=== PATIENT | female | born 1950 | race Caucasian/White ===

== ENCOUNTER 2022-03-29 11:15 | Outpatient (CLI) | payer MEDICARE, OTHER, SELFPAY ==
--- NOTE | 2022-03-29 11:30 | CRLHL7_ITS ---
For Patients: As a result of the Century Cures Act, medical imaging exams and procedure reports are released immediately into your electronic medical record. You may view this report before your referring provider. If you have questions, please contact your health care provider. BILATERAL MAMMOGRAM WITH COMPUTER-AIDED DETECTION AND TOMOSYNTHESIS TECHNIQUE: CC and MLO views were obtained. These mammographic images have been obtained using full-field digital technique. These mammographic images were interpreted with the benefit of computer-aided detection. Breast Tomosynthesis was used in this interpretation. COMPARISON FILM: 08/18/2020, 03/25/2019, 12/08/2017. FINDINGS: There are scattered areas of fibroglandular density IMPRESSION: There is no radiographic evidence for malignancy. ASSESSMENT: BI-RADS Category 1: Negative RECOMMENDATION: Routine screening mammogram in 1 year. A lay language report of this examination will be provided to the patient. Too Camacho M.D. Diagnostic Radiologist [email or web address] ALFREDO/Dictated by: Too Camacho MD @ 03/29/2022 12:41:00 PM (Electronically Signed)
--- OUTSIDE RECORDS SUMMARY | 2022-04-26 08:31 | XMS_ITS ---
:1950 Author Care Team Providers Name Role Phone HAWA PORTILLO MD Primary Care Provider [phone] [facility] Primary Care Provider [phone] Allergies Code Code System Name Reaction Severity Status Onset 2670 RxNorm Codeine ? ? Active ? 0833934 RxNorm Latex ? ? Active ? Notes: None reaction to unsure, unknow n reaction to latex sensitive Medications Name Status Start Date Stop Date ? ? amlodipine 2.5 mg-atorvastatin 10 mg tablet Completed ? 03/14/2022 5mg/10mg 1/day amlodipine 5 mg tablet Completed ? TAKE 1 TABLET BY MOUTH EVERY DAY amlodipine 5 mg-atorvastatin 10 mg tablet Active ? Not available Take 1 tablet every day by oral route. atorvastatin 10 mg tablet Active ? Not av ailable TAKE 1 TABLET BY MOUTH AT BEDTIME cetirizine 10 mg tablet Active ? Not avai lable Take 1 tablet every day by oral route. ketorolac 0.5 % eye drops Active ? Not av ailable 1 DROP TO OPERATIVE EYE 4 TIMES A DAY STARTING AFTER SURGERY lisinopril Completed ? 03/14/2022 40mg 1/day lisinopril 40 mg tablet Active ? Not avai lable TAKE 1 TABLET BY MOUTH EVERY DAY metronidazole Completed ? 03/14/2022 45g of 0.75% 2/day metronidazole 0.75 % topical cream Active ? Not available APPLY TO AFFECTED AREA TWICE A DAY ofloxacin 0.3 % eye drops Active ? Not av ailable 1 DROP TO OPERATIVE EYE 4 TIMES A DAY STARTING MONDAY BEFORE TAYLOR RGERY One-A-Day Womens Formula Active ? Not lois ilable prednisolone acetate 1 % eye drops,suspension Active ? Not available 1 DROP TO OPERATIVE EYE 4 TIMES A DAY STARTING AFTER SURGERY prednisone 10 mg tablet Completed ? 03/14/20 22 TAKE 30MG DAILY FOR 3DAYS, THEN 20MG DA ERYN FOR 3DAYS, THEN 10MG DAILY. TAKE WITH FOOD sodium fluoride 0.2 % dental solution Active ? Not available USE 10 ML DAILY PREFERABLY AT BEDTIME A FTER THOROUGHLY BRUSHING TEETH, SWISH FOR 1 MINUTE, THEN SPIT vitamin E Active ? Not available 180mg 1/day Problems Name Status Onset Date Source ? Dyslipidemia Active 03/14/2022 ? Cataract Active 03/14/2022 ? Essential Hypertension Active 03/14/2022 ? Rosacea Active 03/14/2022 ? Osteoarthritis Active 03/14/2022 ? Procedures Date Name Performed by ? 02/05/2018 Diagnostic Colonoscopy Information not a vailable Notes: Colonoscopy ? Cataract Surgery Information not avai lable ? Laparoscopy Remove Adnexa Information no t available Notes: Tubal Ligation ? Partial Hysterectomy Information not lois ilable Notes: Hysterectomy (Partial) 03/14/2022 CT, Urogram [facility] [address] [place], [place] [address] (Work Place) Results Lab Results Date Name Specimen Result Interpretation Description Value Range Status Address ? 03/14/2022 Urinalysis, [facility] ? Color-status yellow yellow F inal [place] Dipstick [facility]: [address] ? ? [facility] ? Clarity-stat clear clear Final Min [facility]: [address] ? ? [facility] ? Glucose-stat negative negative Final [place] us mg/dL mg/dL [facility]: [address] ? ? [facility] ? Bilirubin-ur negative negative Final [facility]: [address] ? ? [facility] ? Ketones-stat negative negative Final [place] mg/dL mg/dL [facility]: [address] [address], [place] ? ? U[facility] ? SG-status 1.010 1.00-1.03 Final Min [facility]: [address] [address], [place] ? ? U[facility] ? pH-status 6.0 5.00-8.00 Final Min [facility]: [address] [address], [place] ? ? U[facility] ? Protein-stat negative negative Final [facility] mg/dL mg/dL [facility]: [address] [address], [place] ? ? U[facility] ? Urobilinogen 0.2 0.2 Final [place] -status E.U./dL E.U./dL Urology - E.U./dL E.U./dL [facility]: [address] [place] [address] ? ? U[facility] ? Nitrites-sta negative negative Final [facility]: [address] ? ? [facility] ABNORMAL Blood-urine trace-lindsay negative Yeimy l [facility]: [address] ? ? [facility] ? Leuko-status negative negative Final [place] [facility]: [address] ? ? [facility] ? Specimen voided ? Final [place] [facility]: [address] [place] [address] ? ? URC ? Performed by lucho Landeros ? Final [place] [facility]: [address] [place] [address] ? ? URC ? Total Urine 30 /mL ? Final [place] Volume (mL) [facility] - [facility]: [address] [place] [address] 03/14/2022 Urinalysis, [facility] ? Color yellow yellow Final [place] Complete [facility]: [address] ? ? U[facility] ? Appearance clear clear Final [place] [facility]: [address] [place] [address] ? ? URC ? Glucose negative negative Final [place] [facility] mg/dL mg/dL [facility]: [address] [place] [address] ? ? URC ? Bilirubin negative negative Final [place] [facility]: [address] ? ? U[facility] ? Ketones negative negative Final [place] [facility] mg/dL mg/dL [facility]: [address] [place] [address] ? ? URC ? Sp. [place] 1.020 1.010-1.0 Final [place] [facility] 25 [facility]: [address] [place] [address] ? ? URC ? pH -[facility] 5.5 5.0-8.[address] [place] [facility]: [address] [facility] [address], [place] ? ? U[facility] ? Protein negative negative Final [place] [facility] mg/dL mg/dL [facility]: 60[address] [facility] [address], [place] ? ? URC ? Urobilinogen 0.2 normal Final [place] [facility]: [address] [facility] [address], [place] ? ? URC ? Nitrites negative negative Final [place] [facility]: [address] [facility] [address], [place] ? ? URC ? Blood negative negative Final [place] [facility]: [address] [facility] [address], [place] ? ? U[facility] ? Leukocytes negative negative Final [place] [facility]: 60[address] [facility] [address], [place] ? ? URC ? Total Urine 30 /mL ? Final [place] Volume (mL) [facility] - [facility]: 60[address] [facility] 200, [place] ? ? URC ? U-WBC 0 - 2 0 - 2 Final [place] [hpf] [hpf] [facility]: 60[address] [facility] [address], [place] ? ? URC ? U-RBC 0 - 2 0 - 2 Final [place] [hpf] [hpf] [facility]: 60[address] [facility] [address], [place] ? ? URC ? Bacteria negative negative Final [place] [hpf] [hpf] [facility]: 60[address] [facility] [address], [place] ? ? URC ? Squamous Epi negative negative, Final [place] [facility] - /lpf [facility]: 60[address] [facility] [address], [place] 02/07/2022 Urinalysis, ? No ? ? ? Dipstick observation recorded. Past Encounters 03/14/2022 Blood in Urine; Family History of Malign ant Neoplasm of Urinary Bladder; Ex-smoker Florentin Alicea MD: [address], [address], [place] [address], Ph. Social History Tobacco Smoking Status Former Smoker Vaccine List Vaccine Type COVID-19 (SARS-COV-2) vaccine, unspecifi ed 01/26/2022 influenza, unspecified formulation 06/27/2021 pneumococcal, unspecified formulation 05/22/2013 Plan of Care Reminders Provider Appointments None recorded. ? ? Lab None recorded. ? ? Referral None recorded. ? ? Procedures None recorded. ? ? Surgeries None recorded. ? ? Imaging None recorded. ? ? Vitals Height Weight BMI 5 ft 6 in 168 lbs 27.1 kg/m2
--- OUTSIDE RECORDS SUMMARY | 2022-04-26 08:31 | XMS_ITS | Encounter Summary ---
:1950 Author Care Team Providers Name Role Phone Derek Christian MD Primary Care Provider [phone] [facility] Primary Care Provider [phone] Reason for Visit None recorded. Assessment and Plan 1. Blood in urine gross hematuria with clots at least onc e Right side pain, blood clots in urine UA 3+ blood, neg nit, neg le 25-50 RBC no prior kidney stones fam history of bladder cancer- sister prior smoker cystoscopy 03/14/22- shows area of suspic ious erythema and possible small tumor Plan: CT urogram (high risk gross hematuria, r equires IV contrast) cytology today OR for bladder biopsy (okay for ASC) ? urinalysis, dipstick ? cystoscopy with bladder biopsy (SURG) ? CT, urogram - please call pt to sched ule ? cytology, urine ? urinalysis, complete 2. Family history of malignant neoplasm of urinary bladder 3. Ex-smoker Discussion Note: None recorded.Patient educational handouts: No information available. Plan of Care Reminders Provider Appointments Lab 30 Voiding 04/08/2022 [facility] Trial/fill&pull 10:00AM ? Family Tumor Conference 30 04/11/2022 Florentin Alicea MD 3:30PM Lab Urinalysis, Dipstick 03/14/2022 [place] [facility] ? Cytology, Urine 03/14/2022 [place] [facility] [place] [facility] ? Urinalysis, Complete 03/14/2022 [place] [facility] [place] Referral None recorded. ? ? Procedures None recorded. ? ? Surgeries Cystoscopy with Bladder 03/14/2022 ? Biopsy (SURG) Imaging CT, Urogram 03/14/2022 [facility] dilia Medications Name Start Date ? ? amlodipine 5 mg-atorvastatin 10 mg tablet ? Take 1 tablet every day by oral route. atorvastatin 10 mg tablet ? TAKE 1 TABLET BY MOUTH AT BEDTIME cetirizine 10 mg tablet ? Take 1 tablet every day by oral route. ketorolac 0.5 % eye drops ? 1 DROP TO OPERATIVE EYE 4 TIMES A DAY STARTING AFTER SURGERY lisinopril 40 mg tablet ? TAKE 1 TABLET BY MOUTH EVERY DAY metronidazole 0.75 % topical cream ? APPLY TO AFFECTED AREA TWICE A DAY ofloxacin 0.3 % eye drops ? 1 DROP TO OPERATIVE EYE 4 TIMES A DAY STARTING MONDAY BEFORE SURGERY One-A-Day Womens Formula ? prednisolone acetate 1 % eye drops,suspension ? 1 DROP TO OPERATIVE EYE 4 TIMES A DAY STARTING AFTER SURGERY sodium fluoride 0.2 % dental solution ? USE 10 ML DAILY PREFERABLY AT BEDTIME A FTER THOROUGHLY BRUSHING TEETH, SWISH FOR 1 MINUTE, THEN SPIT vitamin E ? 180mg 1/day Medications Administered None recorded. Vitals Height Weight BMI 5 ft 6 in 168 lbs 27.1 kg/m2 Results Lab Results Date Name Specimen Result Interpretation Description Value Range Status Address ? 03/14/2022 Urinalysis, [facility] ? Color-status yellow yellow F inal [place] Dipstick [facility]: [address] ? ? [facility] ? Clarity-stat clear clear Final Min [facility]: [address] ? ? [facility] ? Glucose-stat negative negative Final [facility] mg/dL mg/dL [facility] [address] ? ? U[facility] ? Bilirubin-ur negative negative Final [facility]: [address] ? ? [facility] ? Ketones-stat negative negative Final [facility] mg/dL mg/dL [facility]: [address] ? ? U[facility] ? SG-status 1.010 1.00-1.03 Final Min [facility]: [address] [address], [place] ? ? URC ? pH-status 6.0 5.00-8.00 Final Min [facility]: [address] [address], [place] ? ? URC ? Protein-stat negative negative Final [place] us mg/dL mg/dL [facility]: [address] [address], [place] ? ? URC ? Urobilinogen 0.2 0.2 Final [place] -status E.U./dL E.U./dL Urology - E.U./dL E.U./dL [facility]: [address] ? ? U[facility] ? Nitrites-sta negative negative Final [facility]: [address] ? ? [facility] ABNORMAL Blood-urine trace-lindsay negative Yeimy l [facility]: [address] [place] [address] ? ? URC ? Leuko-status negative negative Final [place] [facility]: [address] ? ? URC ? Specimen voided ? Final [place] [facility]: [address] [place] [address] ? ? URC ? Performed by lucho Landeros ? Final [place] [facility]: [address] [place] [address] ? ? URC ? Total Urine 30 /mL ? Final [place] Volume (mL) [facility]: [address] [place] [address] 03/14/2022 Urinalysis, U[facility] ? Color yellow yellow Final [place] Complete -[facility]: [address] [place] [address] ? ? URC ? Appearance clear clear Final [place] [facility]: [address] [place] [address] ? ? URC ? Glucose negative negative Final [place] [facility] mg/dL mg/dL [facility]: [address] [place] [address] ? ? URC ? Bilirubin negative negative Final [place] [facility]: [address] [place] [address] ? ? URC ? Ketones negative negative Final [place] -[facility] mg/dL mg/dL [facility]: [address] [place] [address] ? ? URC ? Sp. [place] 1.020 1.010-1.0 Final [place] -[facility] 25 [facility]: [address] [place] [address] ? ? URC ? pH -[facility] 5.5 5.0-8.0 Final [place] [facility]: [address] ? ? URC ? Protein negative negative Final [place] -[facility] mg/dL mg/dL [facility]: 60[address] [facility] [address], [place] ? ? URC ? Urobilinogen 0.2 normal Final [place] [facility]: [address] [facility] [address], [place] ? ? URC ? Nitrites negative negative Final [place] [facility]: [address] [facility] [address], [place] ? ? URC ? 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 ? URC ? Leukocytes negative negative Final [place] [facility]: [address] [facility] [address], [place] ? ? URC ? Total Urine 30 /mL ? Final [place] Volume (mL) [facility]: [address] [facility] [address], [place] ? ? URC ? U-WBC 0 - 2 0 - 2 Final [place] [hpf] [hpf] [facility]: [address] [facility] [address], [place] ? ? URC ? U-RBC 0 - 2 0 - 2 Final [place] [hpf] [hpf] [facility]: [address] [address], [place] ? ? URC ? Bacteria negative negative Final [place] [hpf] [hpf] [facility]: [address] [address], [place] ? ? URC ? Squamous Epi negative negative, Final [place] /lpf small Urology - /lpf [facility]: [address] [address], [place] Allergies Code Code System Name Reaction Severity Onset 2670 RxNorm Codeine ? ? ? [id number] RxNorm Latex ? ? ? Notes: None reaction to unsure, unknow n reaction to latex sensitive Problems Name Status Onset Date Source ? [...] ilable Notes: Hysterectomy (Partial) 03/14/2022 CT, Urogram [facility] [address] [place], [place] [address] (Work Place) Vaccine List Vaccine Type COVID-19 (SARS-COV-2) vaccine, unspecifi ed 01/26/2022 influenza, unspecified formulation 06/27/2021 pneumococcal, unspecified formulation 05/22/2013 Social History Tobacco Smoking Status Former Smoker What is your level of alcohol consumption? Occasional Do you or have you ever used smokeless tobacco? Never used s mokeless tobacco Are you sexually active? N How much tobacco do you chew? none What was the date of your most recent tobacco 03/14/2022 screening? Do you or have you ever used e-cigarettes or Never used elec tronic cigarettes vape? What is your level of caffeine consumption? None Do you use any illicit or recreational drugs? N Number of Caesarean Sections 0 When did you quit smoking? 16+yearssincelastcigarette How many years have you smoked tobacco? 30 Number of pregnancies 4 What is your relationship status? Number of vaginal deliveries 2 Family History Relation Problem Onset Age of Age Notes Mother Family history of diabetes (No Information) N/A (No Notes) mellitus Father Family history of cardiac (No Information) N/A (No Notes) disorder Sister Family history of neoplasm of (No Information) N/A (No Notes) ovary Sister Family history of diabetes (No Information) N/A (No Notes) mellitus Brother Family history of diabetes (No Information) N/A x2 mellitus Functional Status Unknown. Past Encounters 03/14/2022 Blood in Urine; Family History of Malign ant Neoplasm of Urinary Bladder; Ex-smoker Florentin Alicea MD: [address], [address], [place] [address], Ph. History of Present Illness Note: <div>gross hematuria with clots at least once </div><div>
</div>&lt ;div>Right side pain, blood clots in urine </div><div>UA 3+ blood, neg nit, neg le </div><div>25-50 RBC</div><div>
</div><div>no prior kidneystones </div><div>
</div><div>fam history of bladder cancer- sister </div><div>
</div><div>prior smoker </div><div><br&gt ;</div><div>
</div><div>
</div><p><strong>Chief complaint:</strong> Blood in urine</p><div>
</div><p>Hematuria:</p><p><strong>Began:</strong> 4 Weeks ago</p><p><strong>Associated symptoms:</strong> Back pain</p><div>
</div><p><strong>Overactive Bladder Pathway Questionnaire:</strong></p><p>Uses the restroom: <strong>8</strong> times per day</p><p>Uses the restroom (nighttime): every <strong>2</strong> hours</p><p>Accidents: <strong>0</strong> per day</p><p>Pads: using <strong>0</strong> per day</p><div>
</div><p><strong>Urogenital Distress Inventory (HELGA-6):</strong></p><p>[<strong>1</strong>]Frequent urination: <strong>Slightly</strong></p><p>[<strong>0</strong>] Urine leakage related to the feeling of urgency: <strong>Not at All</strong></p><p>[<strong>0</strong>] Urineleakage related to physical activity, coughing or sneezing: <strong>Not at All</strong></p><p>[<strong>0</strong>] Small amounts of urine leakage (drops): <strong>Not at All</strong></p><p>[<strong>0</strong>] Difficulty emptying your bladder: <strong>Not at All</strong></p><p>[<strong>0</strong>] Pain or discomfort in the lower abdominal or genital area: <strong>Not at All</strong></p><div>
</div><div>
</div><div>
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): <strong>Not at All</strong></p><p>[<strong>0</strong>] Physical recreation such as walking, or other exercise: <strong>Not at All</strong></p><p>[& lt;strong>0</strong>] Ability to attend entertainment activities (movie, concerts): <strong>Not at All</strong></p><p>[<strong>0</strong>] Ability to travelby car more than 30 minutes from home: <strong>Not at All</strong></p><p>[<strong>0</strong>] Participation in social activities outside your home: <strong>Notat All</strong></p><p>[<strong>0</strong>] Emotional health (nervousness, depression, etc): <strong>Not at All</strong></p><p>[<strong>0</strong>] Fisher frustrated: <strong>Not at All</strong></p><div>
</div> Review of Systems ? Comprehensive General Adult ROS Reported By: Patient Cardiovascular: Cardiovascular: no chest lynda n, no palpitations Respiratory: Respiratory: no cough, no sh ortness of breath Gastrointestinal: Gastrointestinal: no abdomin al pain, no nausea, no vomiting, no constipation, no GERD; no fr equent diarrhea Genitourinary: Genitourinary: no incontinen ce, no difficulty urinating; no dysuria, no change in urinar y stream, hematuria Physical Exam ? Notes: <div>MULTI-SYSTEM PHYSICAL E XAMINATION:</div><div>Constitutional: Well-nourished. No physical deformities. Normally developed. Good grooming.</div><div>Respirat ory: No labored breathing, no use of accessory muscles.</div><div>Cardiovas cular: Normal temperature, swelling, varicosities.</div><div>Skin : No paleness, no jaundice, no cyanosis. No lesion, no ulcer, no rash.</ div><div>Psychiatric: Oriented to time, oriented to place, oriented to person . No depression, no anxiety, no agitation.</div><div>Gastroi ntestinal: No mass, no tenderness, no rigidity, abdomen. No CVAT</div><div>E yes: Normal conjunctivae. Normal eyelids.</div><div>Musculosk eletal: Normal gait and station of head and neck.</div>
== END 2022-03-29 11:16 | disposition home or self-care (01) ==
LOC: MAMMO 11:18
PROVIDERS: PCP Family Medicine; Visit Provider Family Medicine
DX: Z12.31 Encounter for screening mammogram for malignant neoplasm of breast (principal); R92.2 Inconclusive mammogram
CPT/HCPCS: 77063; 77067

== ENCOUNTER 2022-10-12 10:06 | Emergency (ER) | payer MEDICARE, OTHER, SELFPAY ==
[2022-10-12 10:29] VITALS: BP 177/90; PULSE 63; RESP 16; TEMP 36.2; O2SAT 99
--- NOTE | 2022-10-12 11:26 | CRLHL7_ITS ---
For Patients: As a result of the Century Cures Act, medical imaging exams and procedure reports are released immediately into your electronic medical record. You may view this report before your referring provider. If you have questions, please contact your health care provider. Indication: Injury Technique: Three views Comparison: None Findings: There is a transverse fracture of the distal radial metaphysis without significant displacement or angulation. There is an associated ulnar styloid avulsion with 2 millimeters distraction. Adjacent soft tissue swelling. Underlying osteopenia. Dictated by Hayden Cha MD @ 10/12/2022 12:33:56 PM (Electronically Signed)
--- NOTE | 2022-10-12 11:37 | ED.NURSE ---
pt taken from waiting room to radiology
--- OUTSIDE RECORDS SUMMARY | 2022-10-12 12:12 | XMS_ITS ---
:1950 Author Name MELVIN MULLIGAN Address Unavailable Unavailable , Care Team Providers Name Role Phone HEMANT MULLIGAN Attending [phone] HEMANT MULLIGAN Ordering [phone] Allergies and Intolerances Substance Reaction Severity Activated Date Status No Known Drug Allergies ASSESSMENT Assessment Charted Date/Time No assessment available Encounter Diagnosis Encounter Diagnosis Diagnosis Date/Time Status Encounter for immunization [Z23] 11/13/2020 17:00 complet ed IMMUNIZATIONS Vaccine Administration Date Status Reason COVID-19 Moderna Vaccine 12/11/2020 Completed COVID-19 Moderna Vaccine 11/13/2020 Completed Medications Administered Medication Start Date Dosage Route Frequency Last Administe red MODERNA COVID-19 11/13/2020 100 mcg Intramuscular one time ONLY 0 11/13/2020 17:07 VACCINE INJ [100 17:06 MCG/0.5 ML] (COVID-19 MODERNA VACCINE) Social History SOCIAL HISTORY TOBACCO USE TypeStatusStart DateEnd DateLast ReviewedCurrent Smoking StatusTobacco smoking consumption unknownGender Identity and Sexual OrientationTypeStatusLast ReviewedBirth Sex Female 16:26
--- OUTSIDE RECORDS SUMMARY | 2022-10-12 12:12 | XMS_ITS ---
:1950 Author Name JAY PAUL Address Unavailable Unavailable , Care Team Providers Name Role Phone MD JAY PAUL Attending +1 MD JAY PAUL Ordering +1 Allergies and Intolerances Substance Reaction Severity Activated Date Status No Known Drug Allergies ASSESSMENT Assessment Charted Date/Time No assessment available Encounter Diagnosis Encounter Diagnosis Diagnosis Date/Time Status Encounter for immunization [Z23] 12/11/2020 10:30 complet ed IMMUNIZATIONS Vaccine Administration Date Status Reason COVID-19 Moderna Vaccine 12/11/2020 Completed COVID-19 Moderna Vaccine 11/13/2020 Completed Medications Administered Medication Start Date Dosage Route Frequency Last Administe red MODERNA COVID-19 12/11/2020 100 mcg Intramuscular one time ONLY 0 12/11/2020 10:05 VACCINE INJ [100 10:30 MCG/0.5 ML] (COVID-19 MODERNA VACCINE) Social History SOCIAL HISTORY TOBACCO USE TypeStatusStart DateEnd DateLast ReviewedCurrent Smoking StatusTobacco smoking consumption unknownGender Identity and Sexual OrientationTypeStatusLast ReviewedBirth Sex Female 16:26
--- NOTE | 2022-10-12 12:23 | ED.UPPEXIN ---
HPI - Extremity Injury (Upper) General Chief Complaint: Extremity Pain/Injury, Upper Stated Complaint: Fell earlier, L wrist injury Time Seen by Provider: 10/12/22 10:53 History of Present Illness HPI narrative: This 72-year-old female comes in with an injury to her left wrist. She slipped on ice and fell about a hour prior to arrival. She has pain at her left wrist with some swelling. She does not report any other injury. She did not hit her head or have loss of consciousness. Related Data Home Medications Medication Instructions Recorded Confirmed amlodipine 5 mg tablet 5 mg PO DAILY 04/01/22 04/01/22 aspirin 81 mg tablet,delayed 81 mg PO QDAY 04/01/22 04/01/22 release atorvastatin 10 mg tablet 10 mg PO .Bedtime 04/01/22 04/01/22 lisinopril 40 mg tablet 40 mg PO DAILY 04/01/22 04/01/22 untzomkx-fmh-icwrw ac 400 1 tab PO DAILY 04/01/22 04/01/22 mcg-calcium carb 500 mg-vit K1 20 mcg tablet (Women's 50 Plus Multivitamin) Previous Rx's Medication Instructions Recorded metronidazole 0.75 % topical cream 1 applic topical BID #45 grams 08/03/22 Allergies Allergy/AdvReac Type Severity Reaction Status Date / Time codeine Allergy Mild Heart Verified 04/01/22 08:49 palpitations latex Allergy Mild Sensitive Verified 04/01/22 08:49 steroid responder Allergy Mild pt stated Uncoded 04/01/22 08:49 she sees hari's Review of Systems Status of ROS: Reports: 10 or more systems reviewed and unremarkable except as noted in History and below Narrative: Constitutional: No fevers, no weight gain or loss. Eyes: No discharge. No vision changes. HENT: No congestion, no sore throat, no ear pain. Cardiovascular: No chest pain, no palpitations. Respiratory: No shortness of breath, no wheezes, no cough. Gastrointestinal: No abdominal pain, no vomiting, no diarrhea. Genitourinary: No dysuria, no hematuria. Musculoskeletal: Left wrist injury as described above. Skin: No rashes, no pruritis. Neurological: No dizziness, weakness, sensory change, speech change. Endo/Heme/Allergies: No bruising or bleeding. No polydipsia. Pysch: no suicidality, no anxiety, no insomnia. All other systems reviewed and are negative. [facility] Medical History (Updated 10/12/22 @ 12:29 by ) History of rheumatic fever Pain of left scapula Surgical History History of colonoscopy (2005) History of hysterectomy for benign disease (1995) S/P cataract extraction S/P laser iridotomy Family History Father Coronary artery disease Sister Kidney disease Ovarian cancer Type 2 diabetes mellitus Mother Type 2 diabetes mellitus Brother Type 2 diabetes mellitus Social History Narrative: Exercises regularly. 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 HEENT: Normocephalic, atraumatic. Neck: Normal range of motion. Nontender. Supple. Heart: Intact distal pulses. Lungs: No chest discomfort. No wheezes, rhonchi, or rales. Abdomen: Nontender. Back: Normal range of motion. Extremities: Diffuse swelling around the left wrist with no obvious deformity of alignment. No skin injury. Skin: Intact. No rash. Warm. No erythema or pallor. Neurologic: No altered sensation. No weakness. Alert and oriented. Psychiatric: No suicidality. No anxiety or depression. No insomnia. Nursing notes and vitals signs are reviewed. Const: Vital Signs, click to edit/add: Vital Signs - 24 hr 10/12/22 10:29 Temperature 97.1 F L Pulse Rate [Pulse Oximeter] 63 Respiratory Rate 16 Blood Pressure [Ri ght Upper Arm] 177/90 H Pulse Oximetry 99 Oxygen Delivery Me thod Room Air Course Vital Signs Vital signs: Initial Vital Signs Temperature 97.1 F L 10/12/22 10:29 Temperature Source Temporal Artery Scan 10/12/22 10:29 Pulse Rate 63 10/12/22 10:29 Pulse Rhythm 10/12/22 10:29 Respiratory Rate 16 10/12/22 10:29 Blood Pressure 177/90 H 10/12/22 10:29 Blood Pressure Mean 119 10/12/22 10:29 Blood Pressure Position Sitting 10/12/22 10:29 Pulse Oximetry 99 10/12/22 10:29 Oxygen Delivery Method 10/12/22 10:29 Vital Signs Temperature 97.1 F L 10/12/22 10:29 Pulse Rate 63 10/12/22 10:29 Respiratory Rate 16 10/12/22 10:29 Blood Pressure 177/90 H 10/12/22 10:29 Pulse Oximetry 99 10/12/22 10:29 Oxygen Delivery Method 10/12/22 10:29 Temperature 97.1 F L 10/12/22 10:29 Pulse Rate 63 10/12/22 10:29 Respiratory Rate 16 10/12/22 10:29 Blood Pressure 177/90 H 10/12/22 10:29 Pulse Oximetry 99 10/12/22 10:29 Oxygen Delivery Method 10/12/22 10:29 MDM - Extremity Injury (Upper) MDM Narrative Medical decision making narrative: This patient comes in with an injury to her left wrist. X-ray imaging by my review with radiology report pending shows evidence of distal radius fracture. There is also displacement of the ulnar styloid. The alignment looks acceptable to me so a Ortho Glass splint was placed over the volar surface of her forearm. I did not make any adjustment but did arrange for follow-up appointment with orthopedic clinic. The patient states that she will use oilc-izo-sysmykt medicines as needed and directed for pain relief. Imaging Data XR L Wrist: My impression: Minimally displaced fracture of the distal radius of the left wrist with ulnar styloid fracture. Discharge Plan Discharge Clinical Impression: Fracture of wrist Patient Disposition: Home, Self-Care Condition: Stable Instructions: Wrist Fracture in Adults (ED) Additional Instructions: Wear splint. Follow-up with orthopedic clinic appointment as scheduled. Use hegn-rea-oytvlga medicines as needed and directed. Prescriptions: No Action amlodipine 5 mg tablet 5 mg PO DAILY lisinopril 40 mg tablet 40 mg PO DAILY atorvastatin 10 mg tablet 10 mg PO .Bedtime aspirin 81 mg tablet,delayed release (DR/EC) 81 mg PO QDAY Women's 50 Plus Multivitamin 400 mcg-500 mg calcium-20 mcg tablet 1 tab PO DAILY metronidazole 0.75 % cream 1 applic topical BID Qty: 45 5RF Follow Up/Referrals: Derek Christian MD [Primary Care Provider] - Stand Alone Forms: [employer] Info Instructions
== END 2022-10-12 12:40 | disposition home or self-care (01) ==
PROVIDERS: Emergency Provider Emergency Medicine Emergency Medical Services; PCP Family Medicine
DX: S52.502A Unspecified fracture of the lower end of left radius, initial encounter for closed fracture (principal); S52.612A Displaced fracture of left ulna styloid process, initial encounter for closed fracture; W00.9XXA Unspecified fall due to ice and snow, initial encounter
CPT/HCPCS: 29125; 73110; 99283; 99284

== ENCOUNTER 2023-03-31 08:51 | Outpatient (CLI) | payer MEDICARE, OTHER, SELFPAY ==
--- NOTE | 2023-03-31 08:45 | CRLHL7_ITS ---
For Patients: As a result of the Century Cures Act, medical imaging exams and procedure reports are released immediately into your electronic medical record. You may view this report before your referring provider. If you have questions, please contact your health care provider. BILATERAL SCREENING MAMMOGRAM WITH COMPUTER-AIDED DETECTION AND TOMOSYNTHESIS TECHNIQUE: CC and MLO views were obtained. These mammographic images have been obtained using full-field digital technique. These mammographic images were interpreted with the benefit of computer-aided detection. Breast tomosynthesis was used in this interpretation. COMPARISON FILM: 03/29/22, 08/18/20, 03/25/19. FINDINGS: There are scattered areas of fibroglandular density. IMPRESSION: There is no radiographic evidence for malignancy. ASSESSMENT: BI-RADS Category 1: Negative RECOMMENDATION: Routine screening mammogram in 1 year. A lay language report of this examination will be provided to the patient. TOO COLE M.D. Diagnostic Radiologist [email or web address] JACOBY/arron Transcribed: 03/31/2023, 3:[address]/Dictated by: Too Cole MD @ 03/31/2023 10:00:00 AM (Electronically Signed)
--- OUTSIDE RECORDS SUMMARY | 2023-03-31 08:55 | XMS_ITS ---
Author Name MELVIN MULLIGAN Address Unknown Phone [phone] Organization Unknown Address Unknown Phone [phone] Care Team Providers Care Progressive Care Unit Registered Nurse Name Role Phone HEMANT MULLIGAN Attending [phone] HEMANT MULLIGAN Ordering [phone] Allergies and Intolerances Substance Reaction Severity Activated Date Status No Known Drug Allergies ASSESSMENT Assessment Charted Date/Time No assessment available Encounter Diagnosis Encounter Diagnosis Diagnosis Date/Time Status Encounter for immunization [Z23] 11/13/2020 17:0 0 completed IMMUNIZATIONS Vaccine Administration Date Status Reason COVID-19 Moderna Vaccine 12/11/2020 Completed COVID-19 Moderna Vaccine 11/13/2020 Completed Medications Administered Medication Start Date Dosage Route Frequency Last Adm inistered MODERNA COVID-19 VACCINE INJ [100 MCG/0.5 ML] (COVID-19 MODERNA VACCINE) 11/13/2020 17:06 100 mcg Intramuscular one time ONLY 11/13/2020 17:07 Social History SOCIAL HISTORY TOBACCO USE TypeStatusStart DateEnd DateLast ReviewedCurrent Smoking StatusTobacco smoking consumption unknownGender Identity and Sexual OrientationTypeStatusLast ReviewedBirth Sex Female 16:26
--- OUTSIDE RECORDS SUMMARY | 2023-03-31 08:55 | XMS_ITS ---
Author Name JAY PAUL Address Unknown Phone 1 Organization Unknown Address Unknown Phone 1 Care Team Providers Care Manager Insurance Name Role Phone MD JAY PAUL Attending +1 MD JAY PUAL Ordering +1 Allergies and Intolerances Substance Reaction Severity Activated Date Status No Known Drug Allergies ASSESSMENT Assessment Charted Date/Time No assessment available Encounter Diagnosis Encounter Diagnosis Diagnosis Date/Time Status Encounter for immunization [Z23] 12/11/2020 10:3 0 completed IMMUNIZATIONS Vaccine Administration Date Status Reason COVID-19 Moderna Vaccine 12/11/2020 Completed COVID-19 Moderna Vaccine 11/13/2020 Completed Medications Administered Medication Start Date Dosage Route Frequency Last Adm inistered MODERNA COVID-19 VACCINE INJ [100 MCG/0.5 ML] (COVID-19 MODERNA VACCINE) 12/11/2020 10:30 100 mcg Intramuscular one time ONLY 12/11/2020 10:05 Social History SOCIAL HISTORY TOBACCO USE TypeStatusStart DateEnd DateLast ReviewedCurrent Smoking StatusTobacco smoking consumption unknownGender Identity and Sexual OrientationTypeStatusLast ReviewedBirth Sex Female 16:26
== END 2023-03-31 08:52 | disposition home or self-care (01) ==
LOC: MAMMO 08:52
PROVIDERS: PCP Family Medicine; Visit Provider Family Medicine
DX: Z12.31 Encounter for screening mammogram for malignant neoplasm of breast (principal)
CPT/HCPCS: 77063; 77067

== ENCOUNTER 2023-05-08 08:30 | Outpatient (RCR) | payer MEDICARE, OTHER, SELFPAY ==
--- NOTE | 2022-12-20 13:21 | OT.OPOE ---
OT Outpatient Ortho Eval OT Outpatient Ortho Eval Start: 12/20/22 10:40 Freq: Status: Active Protocol: Document 12/20/22 10:41 LCN (Rec: 12/20/22 10:45 LCN [id number]) E-signed By Rebeka Martinez, OTR/L, CLT OT OP Ortho Eval Details Type Type Eval Complexity Low Insurance Information Insurance Information Medicare B Outpatient History/Precautions Current Condition/Medical Diagnosis Referring Provider Shaila Hines PA-C Treatment Diagnosis L distal radius and ulna fracture w wrist pain, stiffness Date of Onset 10/12/22 Medical Conditions HTN,Latex Allergy Other Conditions high cholesterol. Has fractured a foot in the past. Medical/Functional History Medical History Reviewed Yes Prior Level of Function/Mobility Pt and her live in a [facility]. Son is in [place] and Dtr is in [place]. Has grand children. 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 Fitness community walking Oriented Mental Status No Concerns Ortho Subjective Subjective Subjective Esperanza Dudley is an active 72 y/o woman who was out walking when she slipped on ice/extraded L hand and sustained fracture of distal radius/metaphyseal fracture and ulnar styloid fracture. X ray reveals ~ 8 degree angulation and start of callus healing on ulnar styloid as of 11/24/22. 11/24/22 - 12/13/22 while travelling pt to continue velcro removable brace and remove for bathing and AROM ex of L wrist 2-3x/ day. She continues to have wrist stiffness, pockets of edema at dorsal and volar wrist creases, reduced muscle mass of all wrist and hand areas. Pain Assessment Pain Present Pain Present Pain Reported Location L wrist Description Tightness,Pressure,Dull, Achy, Throbbing,Pulling,Heaviness Intensity 3 Goniometric Comments Goniometric Comments Goniometric Comments AROM-- WR EX to 50 of 75. WR FL to 48 /75. RD 5 of 20 (radial pain ), UD 40/40 ( central volar pain) Supination to 80 of 90. Pronation 90 of 90. Edema at wrist crease is 17.3 cm L and 16.4 cm L. Strength--Family Resource Management Professor pos 1 is 66# R and 28# L (1/10 pressure). george pinch is 18# R and 16# L. 3 pt is 15# R and 7# L. No pain , just tires quickly. OT Objective Data Hand Hand Dominance Right Upper Extremity Special Tests Upper Extremity Special Tests Comments Comments No numbness in hand/digits. Does have some new black wiry hair growth to ulnar side of wrist, but surrounding areas have good temperature, skin mobility and mild edema. OT Problems Problems Problems Decreased Strength,Decreased Range of Motion,Decreased Fine Motor,Lifting,Gripping, Pinching Problems Comments doing hair, washing dishes, carrying more than coffee cup. Unable to fold laundry or do grocery shopping without help. Other Problems Opening Containers,Dressing Assessment Assessment Assessment Given Esperanza's distal radius and ulnar styloid fracture, she continues to have edema, pain, ROM and strength loss of L hand/wrist/forearm, and she would benefit from skilled OT to address these areas. Occupational Therapy Treatment Plan - OP Potential Rehabilitation Potential Excellent Set Goals Goals Set with Patient Yes Goals Goals In 8 weeks, Esperanza will demonstrate:? 1) Decreased pn to <2/10 80% of the time with sustained gripping, carrying groceries, reading books and weeding/ pushing up from the ground. 2) I HEP for stretching, gradual strengthening and self mgmt strategies. 3) improved L mental health unit lead psychologist strength to 50# and pinch to 14# with L wrist pain < 1/10. Target Date 03/20/23 Progress set Treatment Plan Treatment Plan Evaluation,Edema Control,Joint Mobilization,Manual Therapy, Splinting,Ultrasound, Therapeutic Exercise,Self-Care /Home Management,Education Expected Frequency 1x Week Expected Duration 4-6 Weeks Certification Certification I Certify That: Therapy Services Provided, Therapy Plan Established, Therapy Plan Reviewed Recertification Information Recertification Information Initial Certification Date 12/20/22 Recertification Due Date 03/20/23 Provider Signature Shows Agreement With POC & Medical Necessity Physician Comment/Change Comment or Changes Physician NPI Number #
--- NOTE | 2023-03-24 12:26 | OT.OPODN2 ---
OT Outpatient Ortho Daily Note OT Outpatient Ortho Daily Note Start: 12/20/22 10:40 Freq: Status: Active Protocol: Document 03/24/23 12:03 LCN (Rec: 03/24/23 12:25 LCN [id number]) E-signed By Rebeka Martinez, OTR/Patric, CLT Type of Note Type of Note Type of Note Daily Note,Note To MD,Recert/ Progress Note Visit Number [id number] Comments 01/09/23- Pt schedule conflict Insurance Information Insurance Information Medicare B Outpatient History/Precautions Current Condition/Medical Diagnosis Referring Provider Shaila Hines PA-C Treatment Diagnosis L distal radius and ulna fracture w wrist pain, stiffness Date of Onset 10/12/22 Medical Conditions HTN,Latex Allergy Other Conditions high cholesterol. Has fractured a foot in the past. Medical/Functional History Medical History Reviewed Yes Prior Level of Function/Mobility Pt and her live in a [facility]. Son is in [place] and Dtr is in [place]. Has grand children. 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 Fitness community walking Oriented Mental Status No Concerns Ortho Subjective Subjective Subjective Ayden wrist is doing well -- can lift boxes and concentrator tanks, but L thumb is now sore at snuff box , increasing over the past 3 weeks. This visit was meant to be a discharge session, but OTR is requesting 4-8 more visits to address symptoms of acquired L thumb tenosynovitis /Dequervain's pattern. (+) Girish's test. Kepangi opposition is 8/10. Crystal Calibrator is down 12 pounds, pinch is down by 9# since last test on . Pt has no triggering and CMC joint capsule is moving well. Esperanza Dudley is an active 72 y/o woman who was out walking when she slipped on ice/extraded L hand and sustained fracture of distal radius/metaphyseal fracture and ulnar styloid fracture. X ray reveals ~ 8 degree angulation and start of callus healing on ulnar styloid as of 11/24/22. 11/24/22 - 12/13/22 while travelling pt to continue velcro removeable brace and remove for bathing and AROM ex of L wrist 2-3x/ day. She contnues to have wrist stiffness, pockets of edema at dorsal and volar wrist creases, reduced muscle mass of all wrist and hand areas. Pain Assessment Pain Present Pain Present Pain Reported Location L wrist Description Tightness,Pressure,Dull, Achy, Throbbing,Pulling,Heaviness Intensity 2 OT OP Daily Ortho Note/Assessment Self-Care/Home Management Self-Care/Home Management Minutes ( 18 minutes) Self-Care/Home Management Comments OTR educates pt in how to manage symptoms with bracing. OTR fits pt with [facility] comfort cool s velcro brace L Med PLus with good fit. Increases pt epoxy coatings installer to by 6 # and walton pinch by 4.5# with good external stabilization. Pt to wear brace with all heavy tasks. Pt to do warm water soaks in pitcher x 3 min prior to AROM exercises. Therapeutic Exercise Therapeutic Exercise Minutes (minutes) 10 Therapeutic Exercise Comments Added gentle AROM thumb exercises for palmar/radial abduction, IP blocking , opposition arc on table edge, 5 sec holds x 5 glides each after warm water soaks. Goniometric Comments Goniometric Comments Goniometric Comments 03/24/23-- Crystal Calibrator 67# R and 44# L . Walton pinch 10.5# 3/10 pn at 1st dorsal compartment. 3 pt 18# L and 12#R, 3/10 pn at 1st dorsal compartment. (WIth Comfort cool CMC brace on improves to %)# L epoxy coatings installer, 15#walton and 14#3 pt pinch 01/16/23 WR FL to 60 AROM ( improves to 65 after session) and 80 AAROM. Crystal Calibrator 70# R and 56# L. Walton pinch 19# 1/10 pressure at distal radius. 3 pt 17# L and 22#R. 01/06/23-- WE to 60 (no pain with out pressure), WR FL 65 ( over pressure refers to volar ulnar pillar) Crystal Calibrator is 65# R and 35, 46# L, pressure at ECU insert 1/10. Walton pinch is 20# R and 7# L. 3 point is 16# R and 10.5 # L. 01/03/23-- AAROM WE to 68, WL FL to 68. RD 10, UD 45. 12/30/22-- Increased WR FL to 65 after session, 50 at start. from eval--AROM-- WR EX to 50 of 75. WR FL to 48 /75. RD 5 of 20 (radial pain ), UD 40/40 ( central volar pain) Supination to 80 of 90. Pronation 90 of 90. Edema at wrist crease is 17.3 cm L and 16.4 cm L. Strength--Crystal Calibrator pos 1 is 66# R and 28# L (1/10 pressure). walton pinch is 18# R and 16# L. 3 pt is 15# R and 7# L. No pain , just tires quickly. Edema Assessment Additional Information Comments HEP-- 01/16/23-- green band loop WR EX /FL/RD/UD. Weightbearing lat shifts and mini push ups, from knee level. 01/06/23-- Putty epoxy coatings installer,walton and 2pt alternating pinches d/c 01/16/2312/30/22-- epoxy coatings installer w yellow putty in sup/pron/neutral. Mill, prayer stretch, self traction with WR FL/elbow drop OT Objective Data Hand Hand Dominance Right Upper Extremity Special Tests Upper Extremity Special Tests Comments Comments No numbness in hand/digits. Does have some new black wiry hair growth to ulnar side of wrist, but surrounding areas have good temperature, skin mobility and mild edema. OT Problems Problems Problems Decreased Strength,Decreased Range of Motion,Decreased Fine Motor,Lifting,Gripping, Pinching Problems Comments doing hair, washing dishes, carrying more than coffee cup. Unable to fold laundry or do grocery shopping without help. Other Problems Opening Containers,Dressing Patient Potential Excellent Assessment Assessment Assessment Pt 's feeling better with left wrist but now is having symptoms of tenosynovitis. Relieved to have a plan and new strategies to help this next layer of healing in OT. Given Esperanza's distal radius and ulnar styloid fracture, she continues to have edema, pain, ROM and strength loss of L hand/wrist/forearm, and she would benefit from skilled OT to address these areas. Occupational Therapy Treatment Plan - OP Potential Rehabilitation Potential Excellent Set Goals Goals Set with Patient Yes Goals Goals GOAL PROGRESS 03/24/23-- In 8 weeks, Esperanza will demonstrate:? 1) Decreased pn to <2/10 80% of the time with sustained gripping, carrying groceries, reading books and weeding/ pushing up from the ground. ( 3/10 pn at L thumb/1st dorsal compartment with epoxy coatings installer/pinch and weightbearing tasks) 2) I HEP for stretching, gradual strengthening and self mgmt strategies. (Goal met , but HEP to be upgraded to manage secondary onset of L thumb pain) 3) improved L epoxy coatings installer strength to 50# and pinch to 14# with L wrist/thumb pain < 1/10. ( Regression between early January and now) Target Date 06/19/23 Progress set Treatment Plan Treatment Plan Evaluation,Edema Control,Joint Mobilization,Manual Therapy, Splinting,Ultrasound, Therapeutic Exercise,Self-Care /Home Management,Education Expected Frequency 1-2x Week Expected Duration 4-6 Weeks OT Treatment Minutes Treatment Minutes Untimed Treatment Minutes 0 Timed Treatment Minutes 28 Total Treatment Minutes 28 Occupational Therapy Billing Units Billing Units Manual Therapy 1 Therapeutic Exercise 1 Certification Certification I Certify That: Therapy Services Provided, Therapy Plan Established, Therapy Plan Reviewed Recertification Information Recertification Information Initial Certification Date 12/20/22 Recertification Start Date 03/24/23 Recertification Due Date 06/23/23 Reasons to Continue Skilled Therapy Pt with new symptoms of tenosynovitis of L thumb 1st dorsal compartment that has caused reduced tolerance of gripping/pinching w 3/10 pain. WRist AROM progress has stayed well, but still not able to weight bear into her hands per base of thumb pain. Continued Plan of Care and Interventions continue per goals above, modified to include reducing pn in L thumb during epoxy coatings installer/ pinch/weightbearing. Provider Signature Shows Agreement With POC & Medical Necessity Physician Comment/Change Comment or Changes Physician NPI Number #
--- NOTE | 2023-05-08 16:11 | OT.OPODN2 ---
OT Outpatient Ortho Daily Note OT Outpatient Ortho Daily Note Start: 12/20/22 10:40 Freq: Status: Active Protocol: Document 05/08/23 15:36 LCN (Rec: 05/08/23 15:52 LCN [id number]) E-signed By Rebeka Martinez OTR/Patric, CLT Type of Note Type of Note Type of Note Daily Note,Discharge Note,Note To MD Visit Number 13 Comments 01/09/23- Pt schedule conflict Insurance Information Insurance Information Medicare B Outpatient History/Precautions Current Condition/Medical Diagnosis Referring Provider Shaila Hines PA-C Treatment Diagnosis L distal radius and ulna fracture w wrist pain, stiffness Date of Onset 10/12/22 Medical Conditions HTN,Latex Allergy Other Conditions high cholesterol. Has fractured a foot in the past. Medical/Functional History Medical History Reviewed Yes Prior Level of Function/Mobility [facility] Son is in [place] and Dtr is in [place]. Has grand children. 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 Fitness community walking Oriented Mental Status No Concerns Ortho Subjective Subjective Subjective Good with modifying gardening tasks to reduce load on L thumb, tender with pinching. Negative Girish's, still has some grittiness with CMC scrub. Lithograph Printer and pinch non tender today. Able to do light to medium weeding with L hand. Comfort Cool brace rubs on the 1st dorsal compartment and will ache quickly, so not using. 03/24/23--Esperanza's wrist is doing well --can lift boxes and concentrator tanks, but L thumb is now sore at snuff box , increasing over the past 3 weeks. This visit was meant to be a discharge session, but OTR is requesting 4-8 more visits to address symptoms of acquired L thumb tenosynovitis /Dequervain's pattern. (+) Girish's test. Kepangi opposition is 8/10. Lithograph Printer is down 12 pounds, pinch is down by 9# since last test on . Pt has no triggering and CMC joint capsule is moving well. Pain Assessment Pain Present Pain Present Pain Reported Location L 1st dorsal compartment Description Dull, Achy,Pinching,Pulling, With Movement Intensity 1 L wrist Description Tightness,Pressure,Dull, Achy, Throbbing,Pulling,Heaviness Intensity 0 OT OP Daily Ortho Note/Assessment Therapeutic Exercise Therapeutic Exercise Minutes (minutes) 12 Therapeutic Exercise Comments Reviewed HEP to use 5# rubber band for TH stabilization Radial ABD, Pamlar ABD and and Adduction 2 sets of 5 reps , 3 sec holds, slow return. UPdated HEP to considlate exercises, pt to continue with putty or band exercises for keeping t thumb stability 3-5 x/week. OK to stop wrist band exercises as her functional return to heavy chores as has returned. OTR reviews beginning steps of returning to HEP if she has a flare up of wrist pain after a large project. (Return to MD if not able to progress into strength without pain) Ultrasound Ultrasound Location & Joint Position L CMC to IP, 1st dorsal compartment Ultrasound Frequency & Mode 1 MHz Pulsed Intensity (w/cm2) 1.7 Ultrasound Duration 8 Minutes Ultrasound Comments as needed to support reduction of edema for tissue healing and improved tissue mobility Manual Therapy Manual Therapy Minutes (minutes) 10 Manual Therapy Comments OTR cont IASTM with Graston #6 to mobilize soft tissue surrounding joint capsule,? ligament structures and muscle groups to support freedom of movement and healing of structures of L 1st dorsal compartment, IP, MP and CMC joint margins. LLPS at end range. STT glides. Goniometric Comments Goniometric Comments Goniometric Comments 05/08/23-- Lithograph Printer is 74# R and 60 # L, no pain. Walton pinch is 23 # R and 18#L. 3 pt pinch is 23# R and 18# L, no pain. Balanced MMT for L WR EX, WR FL, UD, RD. 03/24/23-- Lithograph Printer 67# R and 44# L . Walton pinch 10.5# 3/10 pn at 1st dorsal compartment. 3 pt 18# L and 12#R, 3/10 pn at 1st dorsal compartment. (WIth Comfort cool CMC brace on improves to %)# L general clerk, 15#walton and 14#3 pt pinch 01/16/23 WR FL to 60 AROM ( improves to 65 after session) and 80 AAROM. Lithograph Printer 70# R and 56# L. Walton pinch 19# 1/10 pressure at distal radius. 3 pt 17# L and 22#R. 01/06/23-- WE to 60 (no pain with out pressure), WR FL 65 ( over pressure refers to volar ulnar pillar) Lithograph Printer is 65# R and 35, 46# L, pressure at ECU insert 1/10. Walton pinch is 20# R and 7# L. 3 point is 16# R and 10.5 # L. 01/03/23-- AAROM WE to 68, WL FL to 68. RD 10, UD 45. 12/30/22-- Increased WR FL to 65 after session, 50 at start. from eval--AROM-- WR EX to 50 of 75. WR FL to 48 /75. RD 5 of 20 (radial pain ), UD 40/40 ( central volar pain) Supination to 80 of 90. Pronation 90 of 90. Edema at wrist crease is 17.3 cm L and 16.4 cm L. Strength--Lithograph Printer pos 1 is 66# R and 28# L (1/10 pressure). walton pinch is 18# R and 16# L. 3 pt is 15# R and 7# L. No pain , just tires quickly. Edema Assessment Additional Information Comments HEP-- 05/01/23-- 5# band w thumb R ABD, P ABD and Add. 03/24/23-- comfort cool CMC med +, palmar/radial abduction, IP blocking , opposition arc 01/16/23-- green band loop WR EX /FL/RD/UD. Weightbearing lat shifts and mini push ups, from knee level. 01/06/23-- Putty general clerk,walton and 2pt alternating pinches d/c 01/16/2312/30/22-- general clerk w yellow putty in sup/pron/neutral. Mill, prayer stretch, self traction with WR FL/elbow drop OT Objective Data Hand Hand Dominance Right Upper Extremity Special Tests Upper Extremity Special Tests Comments Comments No numbness in hand/digits. Does have some new black wiry hair growth to ulnar side of wrist, but surrounding areas have good temperature, skin mobility and mild edema. OT Problems Problems Problems Decreased Strength,Decreased Range of Motion,Decreased Fine Motor,Lifting,Gripping, Pinching Problems Comments doing hair, washing dishes, carrying more than coffee cup. Unable to fold laundry or do grocery shopping without help. Other Problems Opening Containers,Dressing Patient Potential Excellent Assessment Assessment Assessment Pt does have some achiness after wrist exercises, gets some clicking in thumb after she exercises also (educated of some aching normal with conditioning, 15-30 min recovery time is preferred). Cont OT decreasing frequency to every other week for 3 more visits. 03/24/23--Pt 's feeling better with left wrist but now is having symptoms of tenosynovitis. Relieved to have a plan and new strategies to help this next layer of healing in OT. Given Esperanza's distal radius and ulnar styloid fracture, she continues to have edema, pain, ROM and strength loss of L hand/wrist/forearm, and she would benefit from skilled OT to address these areas. Occupational Therapy Treatment Plan - OP Potential Rehabilitation Potential Excellent Set Goals Goals Set with Patient Yes Goals Goals GOAL PROGRESS 05/08/23-- In 8 weeks, Esperanza will demonstrate:? 1) Decreased pn to <2/10 80% of the time with sustained gripping, carrying groceries, reading books and weeding/ pushing up from the ground. ( GOAL MET 05/08/23-- 0/10 pn at L thumb/1st dorsal compartment with general clerk/pinch and weightbearing tasks) 2) I HEP for stretching, gradual strengthening and self mgmt strategies. (Goal met per HEP upgraded to manage secondary 03/24/23 onset of L thumb pain 3) improved L general clerk strength to 60# and pinch to 18# with L wrist/thumb pain < 1/10. (GOAL MET 05/08/23) Target Date 06/19/23 Progress set Treatment Plan Treatment Plan Evaluation,Edema Control,Joint Mobilization,Manual Therapy, Splinting,Ultrasound, Therapeutic Exercise,Self-Care /Home Management,Education Expected Frequency 1-2x Week Expected Duration 4-6 Weeks OT Treatment Minutes Treatment Minutes Timed Treatment Minutes 28 Total Treatment Minutes 28 Occupational Therapy Billing Units Billing Units Manual Therapy 1 Therapeutic Exercise 1 Certification Certification I Certify That: Therapy Services Provided, Therapy Plan Established, Therapy Plan Reviewed Recertification Information Recertification Information Initial Certification Date 12/20/22 Recertification Start Date 03/24/23 Recertification Due Date 06/23/23 Reasons to Continue Skilled Therapy Pt with new symptoms of tenosynovitis of L thumb 1st dorsal compartment that has caused reduced tolerance of gripping/pinching w 3/10 pain. WRist AROM progress has stayed well, but still not able to weight bear into her hands per base of thumb pain. Continued Plan of Care and Interventions continue per goals above, modified to include reducing pn in L thumb during general clerk/ pinch/weightbearing. Provider Signature Shows Agreement With POC & Medical Necessity Physician Comment/Change Comment or Changes Physician NPI Number # Discharge Note Discharge Note Discharge Summary See goal progress per above. Date of First Visit for Therapy 12/20/22 Date of Last Visit for Therapy 06/08/23 Initial Primary Functional Limitations/ Esperanza Dudley is an active Concerns 72 y/o woman who was out walking when she slipped on ice/extraded L hand and sustained fracture of distal radius/metaphyseal fracture and ulnar styloid fracture. X ray reveals ~ 8 degree angulation and start of callus healing on ulnar styloid as of 11/24/22. 11/24/22 - 12/13/22 while travelling pt to continue velcro removeable brace and remove for bathing and AROM ex of L wrist 2-3x/ day. She continues to have wrist stiffness, pockets of edema at dorsal and volar wrist creases, reduced muscle mass of all wrist and hand areas. Then developed symptoms of L De Quervain's and continued OT to address. Initial Pain Level 4 Pain Level at Discharge 1
== END 2023-05-08 17:08 | disposition home or self-care (01) ==
PROVIDERS: PCP Family Medicine; Visit Provider Physician Assistant Surgical
DX: S62.102A Fracture of unspecified carpal bone, left wrist, initial encounter for closed fracture (principal); M25.532 Pain in left wrist; Z51.89 Encounter for other specified aftercare
CPT/HCPCS: 97035; 97110; 97140; 97165; 97535; X5282

== ENCOUNTER 2024-12-13 15:04 | Emergency (ER) | payer MEDICARE, OTHER, SELFPAY ==
--- OUTSIDE RECORDS SUMMARY | 2024-12-13 15:06 | XMS_ITS ---
Author Name JAY PAUL Address Unknown Phone 1 Organization Unknown Address Unknown Phone 1 Care Team Providers Care Advertising Assistant Manager Name Role Phone MD JAY PAUL Attending [...]
--- OUTSIDE RECORDS SUMMARY | 2024-12-13 15:06 | XMS_ITS ---
Author Name MELVIN MULLIGAN Address Unknown Phone [phone] Organization Unknown Address Unknown Phone [phone] Care Team Providers Care Landscape Specialist Name Role Phone HEMANT MULLIGAN Attending [phone] HEMANT MULLIGAN Ordering [phone] Allergies and Intolerances Substance Reaction Severity Activated [...]
--- OUTSIDE RECORDS SUMMARY | 2024-12-13 15:06 | XMS_ITS | Clinical Summary ---
Author Organization [facility] Address [address] [place] [id number] Care Team Providers Care Social Security Benefits Interviewer Name Role Phone Lorraine Zambrano MD Primary Care Provide r Allergies Active Allergy Reactions Criticality Noted Date Comments Codeine *Unknown 03/31/2022 Latex Itching Low 07/12/2016 Medications multivit,calc,min s/iron/folic (ONE-A-DAY WOMENS FORMULA ORAL) Take 1 Tablet by mouth once daily. Active cetirizine (ZYRTEC) 10 mg tablet Take 10 mg by mouth once daily if needed. Active Sodium Fluoride, Dental Rinse, 0.2 % soln USE 10 ML DAILY PREFERABLY AT BEDTIME AFTER THOROUGHLY BRUSHING TEETH, SWISH FOR 1 MINUTE, THEN SPIT 1 Active metroNIDAZOLE 0.75 % gelIndications:Ro sacea Apply topically to affected area(s) two times daily. 45 g 5 4 Active lisinopriL (PRINIVIL; ZESTRIL) 40 mg tabletIndications :Essential (primary) hypertension TAKE ONE TABLET BY MOUTH ONCE DAILY - NEED APPT AND LABS PRIOR TO NEXT REFILL 90 Tablet 3 5 Active amLODIPine (NORVASC) 5 mg tabletIndications :Essential (primary) hypertension TAKE 1 TABLET BY MOUTH EVERY DAY 90 Tablet 3 5 Active atorvastatin (LIPITOR) 10 mg tabletIndications :Hyperlipidemia, unspecified TAKE 1 TABLET BY MOUTH AT BEDTIME 90 Tablet 3 Active Active Problems Problem Noted Date Diagnosed Date HTN (hypertension) 09/13/2024 Rosacea 03/14/2022 Cataract 03/14/2022 Osteoarthritis 03/14/2022 Dyslipidemia 03/14/2022 Routine adult health maintenance 02/05/2018 Overview (02/05/2018): Colonoscopy 01/2018 hemorroid, diverticuli, repeat in 10 years Encounters Date Type Department Care Team Description 10/15/2024 8:25 AM INDUSTRIAL MACHINERY MECHANIC Office Visit [facility] [address] [place] [address] Lorraine Zambrano MD Derm Problem (Red patch on nose. Was seen at [facility] in [place]. Would like to verify how to use prescribed medication. Fluorouracil (5-FU) 5%); Blood Pressure (Home - BP 08/2024 - 09/2024. 126/68 135/70 138/76 139/68 132/72) 10/15/2024 Travel 09/30/2024 Telephone [facility] [address] [place] [address] Lorraine Zambrano MD blood pressure reading 09/29/2024 Refill [facility] [address] [place] [address] Lorraine Zambrano MD Refill Request (Lisinopril, Amlodipine, Atorvastatin) from Last 3 Months Immunizations Immunization Administration Dates Next Due Covid-19 Vaccine (Unspecified) 01/26/2022 Influenza Virus, Unspecified 06/27/2021 Influenza, High-dose Inactivated 06/12/2018,100 11/2016,07/07/2016 Influenza, High-dose Quadriv alent Inactivated 07/06/2023 Influenza, Inactivated AIIV4 (Age 65+ Years) Preserv Free 05/19/2023,06/10/2022,06/27/2021,06/12 Influenza, Inactivated IIV3 (Age 65+ Years) Preserv Free 06/21/2024,06/04/2019 Pneumococcal Conj 20-valent (Prevnar 20) 10/15/2024 Pneumococcal, Unspecified 05/22/2013 RSV, Recombinant ADJ Reconst ituted (Arexvy 120MCG/0.5mL) 08/30/2023 Zoster (Shingrix-RZV, recombinant) 07/17/2019, Social History Tobacco Use Types Packs/Day Years Used Date Smoking Tobacco: Former Cigarettes 1 25 0 03/31/1972 - 03/31/1997 Smokeless Tobacco: Never Tobacco Cessation:Counseling Given: Not Answered Alcohol Use Standard Drinks/Week Comments Yes 0 (1 standard drink = 0.6 oz pur e alcohol) 1x/month PHQ-2 Answer Date Recorded PHQ-2 TOTAL SCORE 0 09/13/2024 Social Connections Answer Date Recorded Do you often feel lonely or isolated from those around you? 0 09/13/2024 Financial Resource Strain Answer Date R ecorded Difficulty of Paying Living Expenses 3 09/13/2024 Difficulty of Paying Living Expenses Not on file 09/13/2024 Food Insecurity Answer Date Recorded Do you worry your food will run out before you are able to buy more? 1 09/13/2024 Transportation Needs Answer Date Record ed Does lack of transportation keep you from medica l appointments? 1 09/13/2024 Does lack of transportation keep you from work, meetings or getting things that you need? 1 09/13/2024 Housing Stability Answer Date Recorded What is your housing situation today? 1 09/13/2024 Utilities Answer Date Recorded Do you have trouble paying f or utilities (for example, heat, electricity, water, phone)? 1 09/13/2024 Comments No Sex and Gender Information Value Date Recorded Sex Assigned at Not on file Legal Sex Female 8:22 AM CDT Gender Identity Not on file Sexual Orientation Not on file Obstetrics History Last Filed Vital Signs Vital Sign Reading Time Taken Comments Blood Pressure 161/73 10/15/2024 8:47 AM INDUSTRIAL MACHINERY MECHANIC Pulse 64 10/15/2024 8:47 AM INDUSTRIAL MACHINERY MECHANIC Temperature 36.6 C (97.8 F) 04/04/2022 9:29 AM CDT Respiratory Rate 16 04/04/2022 10:15 AM CDT Oxygen Saturation 98% 10/15/2024 8:44 AM INDUSTRIAL MACHINERY MECHANIC Inhaled Oxygen Concentration - - Weight 74.4 kg (164 lb) 10/15/2024 8:44 AM INDUSTRIAL MACHINERY MECHANIC Height 167 cm (5' 5.75) 10/15/2024 8:44 AM INDUSTRIAL MACHINERY MECHANIC Body Mass Index 26.67 10/15/2024 8:44 AM INDUSTRIAL MACHINERY MECHANIC Plan of Treatment Upcoming Encounters Date Type Department Care Team (Late st Contact Info) Description 05/08/2025 7:00 AM CDT Office Visit [facility] [address] [facility] [address] Lorraine Zambrano MD [address] [place] [address] Health Maintenance Due Date Last Done Comments Tdap 1961 Hepatitis C screening for ag e -05/05/1966 Tetanus booster 1968 DEXA/DXA scan for age 65+ 2013 Medicare Wellness for age 65+ 2013 COVID-19 vaccine series ( season) 2024 06/21/2024, 07/08/2023, 06/09/2022, Additional history exists Depression screening for age 12+ 09/13/2025 09/13/20 24 BMI (ht and wt on same day) for age 18+ 10/15/2025 10/15/2024 Zoster (shingles) series for age 50+ Completed 07/17/2019, 04/22/2019 RSV vaccine for adults or Completed 08/30/2023 Influenza Vaccine Completed 06/21/2024, , 06/10/2022, Additional history exists Pneumococcal series for age 50+ Completed , 05/22/2013 Procedures Procedure Name Priority Date/Time Associated Diagnosis Comments BASIC METABOLIC PANEL Routine 10/15/2024 9:50 AM INDUSTRIAL MACHINERY MECHANIC HTN (hypertension) LIPID PANEL W REFLEX MEASURED LDL Routine 10/15/2024 9:50 AM INDUSTRIAL MACHINERY MECHANIC Mixed hyperlipidemia from Last 3 Months Results * (ABNORMAL) LIPID PANEL W REFLEX MEASURED LDL (10/15/2024 9:50 AM INDUSTRIAL MACHINERY MECHANIC) CHOLESTEROL, TOTAL 194 <200 mg/dL [facility] HDL CHOLESTEROL 71 > OR = 50 mg/dL [facility] TRIGLYCERIDES 76 <150 mg/dL [facility] LDL-CHOLESTEROL 106(H) mg/dL (calc) [facility] Comment: Reference range: <100 Desirable range <100 mg/dL for primary prevention; <70 mg/dL for patients with CHD or diabetic patients with > or = 2 CHD risk factors. LDL-C is now calculated using the Brian calculation, which is a validated novel method providing better accuracy than the Friedewald equation in the estimation of LDL-C. Casimiro SEN et al. KELLY. 2013;310(19): 2625-9559 (http://education.Coolture/faq/AXM348) CHOL/HDLC RATIO 2.7 <5.0 (calc) [facility] NON HDL CHOLESTEROL 123 <130 mg/dL (calc) [facility] Comment: For patients with diabetes plus 1 major ASCVD risk factor, treating to a non-HDL-C goal of <100 mg/dL (LDL-C of <70 mg/dL) is considered a therapeutic option. Blood BLOOD SPECIMEN / Unknown 10/15/2024 9:50 AM INDUSTRIAL MACHINERY MECHANIC 10/15/2024 9:50 AM INDUSTRIAL MACHINERY MECHANIC Lorraine Zambrano MD CHEMISTRY Final Result [facility] [address] [place] [address], [facility] [address] [place] [address] * BASIC METABOLIC PANEL (10/15/2024 9:50 AM INDUSTRIAL MACHINERY MECHANIC) Pathologist [facility] GLUCOSE 97 65 - 99 mg/dL [facility] Comment: Fasting reference interval UREA NITROGEN (BUN) 17 7 - 25 mg/dL [facility] CREATININE 0.82 0.60 - 1.00 mg/dL [facility] EGFR 74 > OR = 60 mL/min/1. 73m2 [facility] BUN/CREATININE RATIO SEE NOTE: 6 - 22 (calc) [facility] Comment: Not Reported: BUN and Creatinine are within reference range. SODIUM 138 135 - 146 mmol/L [facility] POTASSIUM 4.4 3.5 - 5.3 mmol/L [facility] CHLORIDE 101 98 - 110 mmol/L [facility] CARBON DIOXIDE 30 20 - 32 mmol/L [facility] ELECTROLYTE BALANCE 7 7 - 17 mmol/L (calc) [facility] CALCIUM 9.1 8.6 - 10.4 mg/dL [facility] Blood BLOOD SPECIMEN / Unknown 10/15/2024 9:50 AM INDUSTRIAL MACHINERY MECHANIC 10/15/2024 9:50 AM INDUSTRIAL MACHINERY MECHANIC Lorraine Zambrano MD CHEMISTRY Final Result [facility] [address] [place] [address], [facility] [address] [place] [address] from Last 3 Months Insurance MEDICARE PB ONLY MEDICARE PART B HB ONLY MEDICARE PART A HB ONLY [facility] Advance Directives * Full Code (Latest Code Status on File) Date Activated Date Inactivated Comments 04/04/2022 7:26 AM 04/04/2022 7:31 AM Question Answer Comments Code Status Discussion: Reviewed Preferences * Full Code Date Activated Date Inactivated Comments 04/04/2022 7:26 AM 04/04/2022 7:26 AM Question Answer Comments Code Status Discussion: Reviewed Preferences Care Teams Social Security Benefits Interviewer Relationship Specialty Start Date End Date Lorraine Zambrano MD [address] [place] [address] PCP - General Family Practice 09/13/24
--- OUTSIDE RECORDS SUMMARY | 2024-12-13 15:06 | XMS_ITS | Data Portability ---
Author Organization [facility], UA_[facility] Address [address] [place] [address] Care Team Providers Care Application Designer Name Role Phone HAWA PORTILLO Primary Care Provider Assessment No assessment recorded. Plan of Treatment Reminders Order Date Submit Date Provider Last Modified By Organization Details Last Modified Time Details Appointments None recorded. Lab urinalysis, dipstick 2022 023 [facility], [address], [place], [address], 3 16:22:28 urinalysis, complete 2022 023 [facility], [address], [address], [place], [address], 3 17:48:23 urinalysis, dipstick 2021 022 [facility], [address], [place], [address], 2 09:48:09 cytology, urine 2021 022 [facility], [address], [place], [address], 2 13:15:04 urinalysis, complete 2021 022 [facility], [address], [place], [address], 19:05:19 Referral None recorded. Procedures None recorded. Surgeries cystoscopy with bladder biopsy (SURG) 2021 022 [facility] Not available 16:18:[address], urogram - please call pt to schedule 2021 022 [facility], [address], [place], [address], 10:22:56 Medication Orders None recorded. Patient TargetsNo targets recorded. Patient InstructionsNo instructions recorded. Reason for Referral None Reported. Results Created Date Observation Date Name Description Value Unit Range Abnormal Flag Note LastModifiedBy Organization Detail LastModifiedTime 03/14/2003/14/2022 UA WITHO UT MICRO PLYMO UTH color-status YELLOW yellow Not Available [facility] [address], [place], [address], 03/14/2022 09:48:09 03/14/20 22 03/14/2022 UA WITHO UT MICRO PLYMO UTH clarity-stat us CLEAR clear Not Available [facility] [place] [facility] [address], [place], [address], 03/14/2022 09:48:09 03/14/20 22 03/14/2022 UA WITHO UT MICRO PLYMO UTH glucose-stat us NEGATI VE mg/dL negati ve Not Available [facility] [address], [place], [address], 03/14/2022 09:48:09 03/14/20 22 03/14/2022 UA WITHO UT MICRO PLYMO UTH bilirubin-ur ine NEGATI VE negati ve Not Available [facility] [address], [place], [address], 03/14/2022 09:48:09 03/14/20 22 03/14/2022 UA WITHO UT MICRO PLYMO UTH ketones-stat us NEGATI VE mg/dL negati ve Not Available [facility] [address] [facility] [address], [place], [address], 03/14/2022 09:48:09 03/14/20 22 03/14/2022 UA WITHO UT MICRO PLYMO UTH SG-status 1.010 1.00-1 .03 Not Available [facility] [address] [facility] [address], [place], [address], 03/14/2022 09:48:09 03/14/20 22 03/14/2022 UA WITHO UT MICRO PLYMO UT pH-status 6.0 5.00-8 .00 Not Available [facility] [address] [facility] [address], [place], [address], 03/14/2022 09:48:09 03/14/20 22 03/14/2022 UA WITHO UT MICRO PLYMO UT protein-stat us NEGATI VE mg/dL negati ve Not Available [facility] [address] [place] [address] [address], [place], [address], 03/14/2022 09:48:09 03/14/20 22 03/14/2022 UA WITHO UT MICRO PLYMO UTH urobilinogen -status 0.2 E.U./D L E.U./ dL 0.2 E.U./d L Not Available [facility] [address] [facility] [address], [place], [address], 03/14/2022 09:48:09 03/14/20 22 03/14/2022 UA WITHO UT MICRO PLYMO UT nitrites-sta tus NEGATI VE negati ve Not Available [facility] [address] [facility], [place], [address], 03/14/2022 09:48:09 03/14/20 22 03/14/2022 UA WITHO UT MICRO PLYMO UTH blood-urine TRACE- LYSED negati ve abnormal Not Available [facility] [address], [place], [address], 03/14/2022 09:48:09 03/14/20 22 03/14/2022 UA WITHO UT MICRO PLYMO UTH leuko-status NEGATI VE negati ve Not Available [facility] [address] [facility], [place], [address], 03/14/2022 09:48:09 03/14/20 22 03/14/2022 UA WITHO UT MICRO PLYMO UTH specimen type VOIDED Not Available [facility] [address], [place], [address], 03/14/2022 09:48:09 03/14/20 22 03/14/2022 UA WITHO UT MICRO PLYMO UTH performed by YAIR Landeros Not Available [facility] [address] [facility], [place], [address], 03/14/2022 09:48:09 03/14/20 22 03/14/2022 UA WITHO UT MICRO PLYMO UTH total urine volume (mL) 30 /mL ----- ----- ----- ----- ----- ----- ----- ----- ----- ----- ----- ----- ----- ----- ---- *Candi soto note the follo wing minim um quant ities for addit ional urine testi ng: - Atypi cals: 3 mL - Cytol ogy: 20 mL - GC/CH : 2 mL - FISH: 30 mL - Atypi cals w/ GC/CH : 5 mL - Cytol ogy PLUS FISH: 50 mL - Urine Cultu re: 3 mL ----- ----- ----- ----- ----- ----- ----- ----- ----- ----- ----- ----- ----- ----- ---- Not Available [facility] [address] [place] [address], [place], [address], 03/14/2022 09:48:09 03/14/20 22 03/14/2022 UA WITH MICRO -ADVA NTUS color -advantus YELLOW yellow Not Available [facility] [address] [place] [address] [address], [place], [address], 03/14/2022 19:05:19 03/14/20 22 03/14/2022 UA WITH MICRO -ADVA NTUS appearance -advantus CLEAR clear Not Available [facility] [address] [place] [address] [address], [place], [address], 03/14/2022 19:05:19 03/14/20 22 03/14/2022 UA WITH MICRO -ADVA NTUS glucose -advantus NEGATI VE mg/dL negati ve Not Available [facility] [address] [place] [address] [address], [place], [address], 03/14/2022 19:05:19 03/14/20 22 03/14/2022 UA WITH MICRO -ADVA NTUS bilirubin -advantus NEGATI VE negati ve Not Available [facility] [address] [place] [address], [place], [address], 03/14/2022 19:05:19 03/14/20 22 03/14/2022 UA WITH MICRO -ADVA NTUS ketones -advantus NEGATI VE mg/dL negati ve Not Available [facility] [address] [place] [address] [address], [place], [address], 03/14/2022 19:05:19 03/14/20 22 03/14/2022 UA WITH MICRO -ADVA NTUS sp. gravity -advantus 1.020 1.010- 1.025 Not Available [facility] [address] [place] [address] [address], [place], [address], 03/14/2022 19:05:19 03/14/20 22 03/14/2022 UA WITH MICRO -ADVA NTUS pH -advantus 5.5 5.0-8. 0 Not Available [facility] [address] [place] [address] [address], [place], [address], 03/14/2022 19:05:19 03/14/20 22 03/14/2022 UA WITH MICRO -ADVA NTUS protein -advantus NEGATI VE mg/dL negati ve Not Available [facility] [address] [place] [address] [address], [place], [address], 03/14/2022 19:05:19 03/14/20 22 03/14/2022 UA WITH MICRO -ADVA NTUS urobilinogen -advantus 0.2 normal Not Available [facility] [address] [place] [address] [address], [place], [address], 03/14/2022 19:05:19 03/14/20 22 03/14/2022 UA WITH MICRO -ADVA NTUS nitrites -advantus NEGATI VE negati ve Not Available [facility] [address] [place] [address], [place], [address], 03/14/2022 19:05:19 03/14/20 22 03/14/2022 UA WITH MICRO -ADVA NTUS blood -advantus NEGATI VE negati ve Not Available [facility] [address] [place] [address] [address], [place], [address], 03/14/2022 19:05:19 03/14/20 22 03/14/2022 UA WITH MICRO -ADVA NTUS leukocytes -advantus NEGATI VE negati ve Not Available [facility] [address] [place] [address] [address], [place], [address], 03/14/2022 19:05:19 03/14/20 22 03/14/2022 UA WITH MICRO -ADVA NTUS total urine volume (mL) 30 /mL ----- ----- ----- ----- ----- ----- ----- ----- ----- ----- ----- ----- ----- ----- ---- *Candi soto note the follo wing minim um quant ities for addit ional urine testi ng: - Atypi cals: 3 mL - Cytol ogy: 20 mL - GC/CH : 2 mL - FISH: 30 mL - Atypi cals w/ GC/CH : 5 mL - Cytol ogy PLUS FISH: 50 mL - Urine Cultu re: 3 mL ----- ----- ----- ----- ----- ----- ----- ----- ----- ----- ----- ----- ----- ----- ---- Not Available [facility] [address] [facility] [facility] [address], [place], [address], 03/14/2022 19:05:19 03/14/20 22 03/14/2022 UA WITH MICRO -ADVA NTUS U-WBC 0 - 2 [hpf] 0 - 2 Not Available [facility] [address], [place], [address], 03/14/2022 19:05:19 03/14/20 22 03/14/2022 UA WITH MICRO -ADVA NTUS U-RBC 0 - 2 [hpf] 0 - 2 Not Available [facility] [address], [place], [address], 03/14/2022 19:05:19 03/14/20 22 03/14/2022 UA WITH MICRO -ADVA NTUS bacteria Negati ve [hpf] negati ve Not Available [facility] [address], [place], [address], 03/14/2022 19:05:19 03/14/20 22 03/14/2022 UA WITH MICRO -ADVA NTUS squamous epi Negati ve /lpf negati ve,sma ll Not Available [facility] [address] [place] [address] [address], [place], [address], 03/14/2022 19:05:19 04/18/20 23 04/18/2023 UA WITHO UT MICRO PLYMO UTH color-status YELLOW yellow Not Available [facility] [address] [place] [address] [address], [place], [address], 04/18/2023 16:22:28 04/18/20 23 04/18/2023 UA WITHO UT MICRO PLYMO UTH clarity-stat us CLEAR clear Not Available [facility] [address] [place] [address] [address], [place], [address], 04/18/2023 16:22:28 04/18/20 23 04/18/2023 UA WITHO UT MICRO PLYMO UTH glucose-stat us NEGATI VE mg/dL negati ve Not Available [facility] [address] [place] [address] [address], [place], [address], 04/18/2023 16:22:28 04/18/20 23 04/18/2023 UA WITHO UT MICRO PLYMO UTH bilirubin-ur ine NEGATI VE negati ve Not Available [facility] [address] [place] [address] [address], [place], [address], 04/18/2023 16:22:28 04/18/20 23 04/18/2023 UA WITHO UT MICRO PLYMO UTH ketones-stat us NEGATI VE mg/dL negati ve Not Available [facility] [address] [place] [address] [address], [place], [address], 04/18/2023 16:22:28 04/18/20 23 04/18/2023 UA WITHO UT MICRO PLYMO UTH SG-status 1.010 1.00-1 .03 Not Available [facility] [address] [place] [address] [address], [place], [address], 04/18/2023 16:22:28 04/18/20 23 04/18/2023 UA WITHO UT MICRO PLYMO UTH pH-status 6.5 5.00-8 .00 Not Available [facility] [address] [facility] [address], [place], [address], 04/18/2023 16:22:28 04/18/20 23 04/18/2023 UA WITHO UT MICRO PLYMO UTH protein-stat us NEGATI VE mg/dL negati ve Not Available [facility] [address], [place], [address], 04/18/2023 16:22:28 04/18/20 23 04/18/2023 UA WITHO UT MICRO PLYMO UTH urobilinogen -status 0.2 E.U./D L E.U./ dL 0.2 E.U./d L Not Available [facility] [address], [place], [address], 04/18/2023 16:22:28 04/18/20 23 04/18/2023 UA WITHO UT MICRO PLYMO UTH nitrites-sta tus NEGATI VE negati ve Not Available [facility] [address], [place], [address], 04/18/2023 16:22:28 04/18/20 23 04/18/2023 UA WITHO UT MICRO PLYMO UTH blood-urine TRACE- LYSED negati ve abnormal Not Available [facility] [address], [place], [address], 04/18/2023 16:22:28 04/18/20 23 04/18/2023 UA WITHO UT MICRO PLYMO UTH leuko-status NEGATI VE negati ve Not Available [facility] [address], [place], [address], 04/18/2023 16:22:28 04/18/20 23 04/18/2023 UA WITHO UT MICRO PLYMO UTH specimen type VOIDED Not Available [facility] [address], [place], [address], 04/18/2023 16:22:28 04/18/20 23 04/18/2023 UA WITHO UT MICRO PLYMO UTH performed by LAWRENCE Anthony Not Available [facility] [address], [place], [address], 04/18/2023 16:22:28 04/18/20 23 04/18/2023 UA WITHO UT MICRO PLYMO UTH total urine volume (mL) 30 /mL ----- ----- ----- ----- ----- ----- ----- ----- ----- ----- ----- ----- ----- ----- ---- *Candi soto note the follo wing minim um quant ities for addit ional urine testi ng: - Atypi cals: 3 mL - Cytol ogy: 20 mL - GC/CH : 2 mL - FISH: 30 mL - Atypi cals w/ GC/CH : 5 mL - Cytol ogy PLUS FISH: 50 mL - Urine Cultu re: 3 mL ----- ----- ----- ----- ----- ----- ----- ----- ----- ----- ----- ----- ----- ----- ---- This lab resul t is being provi ded to you and your provi mango at the same time in compl iance with the 21st Centu ry Cures Act. Your provi mango may not have had time to revie w and make recom menda tions based on the resul t. Bob hernandez allow up to one week for provi mango revie w. Not Available [facility] [address], [place], [address], 04/18/2023 16:22:28 04/18/20 23 04/18/2023 UA WITH MICRO -URIS CAN color - uriscan YELLOW lt. yellow ;yello w Not Available [facility] [address] [place] [address] [address], [place], [address], 04/18/2023 17:48:23 04/18/20 23 04/18/2023 UA WITH MICRO -URIS CAN clarity - uriscan CLEAR clear Not Available [facility] [address] [place] [address] [address], [place], [address], 04/18/2023 17:48:23 04/18/20 23 04/18/2023 UA WITH MICRO -URIS CAN glucose - uriscan NEGATI VE mg/dL negati ve Not Available [facility] [address] [place] [address] [address], [place], [address], 04/18/2023 17:48:23 04/18/20 23 04/18/2023 UA WITH MICRO -URIS CAN bilirubin - uriscan NEGATI VE mg/dL negati ve Not Available [facility] [address] [place] [address] [address], [place], [address], 04/18/2023 17:48:23 04/18/20 23 04/18/2023 UA WITH MICRO -URIS CAN ketones - uriscan NEGATI VE mg/dL negati ve Not Available [facility] [address] [place] [address] [address], [place], [address], 04/18/2023 17:48:23 04/18/20 23 04/18/2023 UA WITH MICRO -URIS CAN sp. gravity - uriscan 1.02 1.01-1 .03 Not Available [facility] [address] [place] [address] [address], [place], [address], 04/18/2023 17:48:23 04/18/20 23 04/18/2023 UA WITH MICRO -URIS CAN pH - uriscan 5.50 5.00-9 .00 Not Available [facility] [address] [place] [address] [address], [place], [address], 04/18/2023 17:48:23 04/18/20 23 04/18/2023 UA WITH MICRO -URIS CAN protein - uriscan NEGATI VE mg/dL negati ve Not Available [facility] [address] [place] [address] [address], [place], [address], 04/18/2023 17:48:23 04/18/20 23 04/18/2023 UA WITH MICRO -URIS CAN urobilinogen - uriscan NORMAL mg/dL normal Not Available [facility] [address] [place] [address] [address], [place], [address], 04/18/2023 17:48:23 04/18/20 23 04/18/2023 UA WITH MICRO -URIS CAN nitrites - uriscan NEGATI VE negati ve Not Available [facility] [address] [place] [address] [address], [place], [address], 04/18/2023 17:48:23 04/18/20 23 04/18/2023 UA WITH MICRO -URIS CAN blood - uriscan NEGATI VE negati ve Not Available [facility] [address] [place] [address] [address], [place], [address], 04/18/2023 17:48:23 04/18/20 23 04/18/2023 UA WITH MICRO -URIS CAN leukocytes - uriscan NEGATI VE negati ve Not Available [facility] [address] [place] [address] [address], [place], [address], 04/18/2023 17:48:23 04/18/20 23 04/18/2023 UA WITH MICRO -URIS CAN total urine volume (mL) 30 /mL ----- ----- ----- ----- ----- ----- ----- ----- ----- ----- ----- ----- ----- ----- ---- *Candi soto note the follo wing minim um quant ities for addit ional urine testi ng: - Atypi cals: 3 mL - Cytol ogy: 20 mL - GC/CH : 2 mL - FISH: 30 mL - Atypi cals w/ GC/CH : 5 mL - Cytol ogy PLUS FISH: 50 mL - Urine Cultu re: 3 mL ----- ----- ----- ----- ----- ----- ----- ----- ----- ----- ----- ----- ----- ----- ---- This lab resul t is being provi ded to you and your provi mango at the same time in compl iance with the Centu ry Cures Act. Your provi mango may not have had time to revie w and make recom menda tions based on the resul t. Bob hernandez allow up to one week for provi mango revie w. Not Available [facility] [address] [facility] [facility] [address], [place], [address], 04/18/2023 17:48:23 04/18/2004/18/2023 UA WITH MICRO -URIS CAN U-WBC 0 - 2 [hpf] 0 - 2 Not Available [facility] [address] [facility], [place], [address], 04/18/2023 17:48:23 04/18/2004/18/2023 UA WITH MICRO -URIS CAN U-RBC 0 - 2 [hpf] 0 - 2 Not Available [facility] [address], [place], [address], 04/18/2023 17:48:23 04/18/2004/18/2023 UA WITH MICRO -URIS CAN bacteria SMALL [hpf] negati ve abnormal Not Available [facility] [address], [place], [address], 04/18/2023 17:48:23 04/18/20 23 04/18/2023 UA WITH MICRO -URIS CAN squamous epi SMALL /lpf negati ve,sma ll This lab resul t is being provi ded to you and your provi mango at the same time in compl iance with the Centu ry Cures Act. Your provi mango may not have had time to revie w and make recom menda tions based on the resul t. Pleas e allow up to one week for provi mango revie w. Not Available [facility] [address], [place], [address], 04/18/2023 17:48:23 Result Notes None recorded. Problems Name Problem SNOMED Code Status Onset Date Resolution Date Notes Provider Name and Address Organization Details Recorded Time Essential hypertension 63906478 Active 2021 Yair Jaylen sotelo, [facility] 2 08:57:08 Osteoarthritis 606736199 Active 2021 Yair Jaylen sotelo, [facility] 2 08:57:16 Rosacea 573596093 Active 2021 Yair Vopatt null, [facility] 2 08:57:24 Dyslipidemia 289056507 Active 2021 Yair Jaylen sotelo, [facility] 2 08:57:31 Cataract 048716195 Active 2021 Yair Vopatt null, [facility] 2 08:57:40 Blood in urine 22076192 Active 2022 ASHLEY Sales MD [address] [facility] [address], [place], [address] , [facility] 3 17:10:53 Problem Notes None recorded. Procedures Surgical History Date Name Laterality Status Provider Name and Address Organization Details Recorded Time 04/18/20 23 Urinalysis completed Lawrence Real [facility] 04/18/2023 14:51:48 04/08/20 Fill and Pull/Voiding Trial/TOV completed Margret Patric Blackmon [facility] 04/08/2022 11:12:35 04/04/20 22 CYSTOSCOPY WITH BLADDER BIOPSY (SURG) completed Lyudmila Tung [facility] 04/08/2022 16:18:20 03/14/20 22 Cystoscopy- female completed ASHLEY GIRALDO MD [address] [place] [address],[address], [place], [address], [facility] 03/14/2022 10:00:45 02/06/20 18 Diagnostic colonoscopy completed Not Available Health Note 03/11/2022 13:03:01 Partial hysterectomy completed Not Available Health Note 03/11/2022 13:03:01 Laparoscopy remove adnexa completed Not Available Health Note 03/11/2022 13:03:01 Cataract Surgery completed Yair Mai [facility] 03/14/2022 08:57:56 Imaging Results None recorded. Procedure Notes None recorded. Medical Equipment None Reported. Allergies Allergen ID Allergen Name Allergen Category Reaction Reaction Severity Criticality Documentation Date Start Date Code Code System Note Provider Name and Address Organization Details Recorded Time 824608 latex environme nt,medica tion Not available Not available Not available 03/14/2022 01481 91 RxNorm Not Available Not Available Not Available 348168 codeine medicatio n Not available Not available Not available 03/14/2022 2670 RxNorm Not Available Not Available Not Available Medications Name Sig Start Date Stop Date Status Note LastModified by Organization Details LastModified Time prednisone 10 mg tablet TAKE 30MG DAILY FOR 3DAYS, THEN 20MG DAILY FOR 3DAYS, THEN 10MG DAILY. TAKE WITH FOOD 03/14 completed Not Available Not Available Not Available cetirizine 10 mg tablet Take 1 tablet every day by oral route. active Not Available Not Available No t Available atorvastati n 10 mg tablet TAKE 1 TABLET BY MOUTH EVERY DAY AT BEDTIME. active Not Available Not Available No t Available ofloxacin 0.3 % eye drops 1 DROP TO OPERATIVE EYE 4 TIMES A DAY STARTING MONDAY BEFORE SURGERY active Not Available Not Available No t Available amlodipine 5 mg tablet TAKE 1 TABLET BY MOUTH EVERY DAY active Not Available Not Available No t Available ketorolac 0.5 % eye drops 1 DROP TO OPERATIVE EYE 4 TIMES A DAY STARTING AFTER SURGERY active Not Available Not Available No t Available prednisolon e acetate 1 % eye drops,suspe nsion 1 DROP TO OPERATIVE EYE 4 TIMES A DAY STARTING AFTER SURGERY active Not Available Not Available No t Available cephalexin 500 mg capsule 04/11 completed Not Available Not Available Not Available metronidazo le 0.75 % topical cream APPLY TOPICALLY TWICE A DAY active Not Available Not Available No t Available sodium fluoride 0.2 % dental solution USE 10 MIL AFTER BRUSHING PREFERABL Y AT BEDTIME SWISH FOR 1 MIN THEN SPIT active Not Available Not Available No t Available lisinopril 40 mg tablet TAKE 1 TABLET BY MOUTH EVERY DAY active Not Available Not Available No t Available amlodipine 5 mg-atorvast atin 10 mg tablet Take 1 tablet every day by oral route. active Not Available Not Available No t Available amlodipine 2.5 mg-atorvast atin 10 mg tablet 5mg/10mg 1/day 03/14 completed Not Available Not Available Not Available One-A-Day Womens Formula active Not Available Not Available Not Available metronidazo le 45g of 0.75% 2/day 03/14 completed Not Available Not Available Not Available vitamin E 180mg 1/day active Not Available Not Available No t Available lisinopril 40mg 1/day 03/14 completed Not Available Not Available Not Available Vitals Date Recorded Body height Provider Name an d Address Organization Details Last Updated DateTime 04/08/2022 167.64 cm Margret Blackmon [facility] 04/08/2022 11:12:05 Date Recorded Body height Body mass index (BMI) Body weight Provider Name and Address Organization Details Last Updated DateTime 04/11/2022 167.64 cm 27.1 kg/m2 01391.52 g Yair York [facility] 04/11/2022 16:23:12 Date Recorded Body height Body mass index (BMI) Body weight Provider Name and Address Organization Details Last Updated DateTime 04/18/2023 167.64 cm 27.4 kg/m2 83978.7 g Lawrence Real [facility] 04/18/2023 14:13:06 Date Recorded Body weight Body mass index (BMI) Body height Provider Name and Address Organization Details Last Updated DateTime 03/14/2022 55287.22797 90943 g 27.1 kg/m2 167.64 cm Not Available Health Note 03/14/2022 09:23:59 Social History Question Answer Notes LastModified by Organizat ion Details LastModified Time Tobacco Smoking Status Former Smoker Not Available Health Note 03/11/2022 13:03:01 What Is Your Level Of Alcohol Consumption? Occasional [email or web address] Information not available 03/11/2022 What Is Your Level Of Caffeine Consumption? None [email or web address] Information not available 03/11/2022 How Much Tobacco Do You Chew? None [email or web address] Information not available 03/11/2022 Do You Or Have You Ever Used E-cigarettes Or Vape? Never Used Electronic Cigarettes [email or web address] Information not available 03/11/2022 When Did You Quit Smoking? 16+yearssincel gerizenaidatrinh [email or web address] Information not available 03/14/2022 Number Of Pregnancies 4 [email or web address] Information not available 03/11/2022 Number Of Vaginal Deliveries 2 [email or web address] Information not available 03/11/2022 Number Of Caesarean Sections 0 [email or web address] Information not available 03/11/2022 What Was The Date Of Your Most Recent Tobacco Screening? 04/18/2023 Information not available 04/18/2023 What Is Your Relationship Status? [email or web address] Information not available 03/11/2022 Are You Sexually Active? No [email or web address] Information not available 03/11/2022 Do You Or Have You Ever Used Smokeless Tobacco? Never Used Smokeless Tobacco [email or web address] Information not available 03/11/2022 Do You Use Any Illicit Or Recreational Drugs? No [email or web address] Information not available 03/11/2022 Has Tobacco Cessation Counseling Been Provided? Yes Information not available 04/18/2023 On What Date Was Tobacco Cessation Counseling Provided? 04/18/2023 Information not available 04/18/2023 How Many Years Have You Smoked Tobacco? 30 [email or web address] Information not available 03/11/2022 Sex: Unknown Functional Status None recorded. Mental Status None recorded. Family History Relationship Description Onset Age of this Age Resolved Age Notes LastModified by Organization Details LastModified Time Mother Family history of diabetes mellitus [email or web address] Not available 2021 13:02:59 Father Family history of cardiac disorder [email or web address] Not available 2021 13:02:59 Sister Family history of neoplasm of ovary [email or web address] Not available 2021 08:58:18 Sister Family history of diabetes mellitus [email or web address] Not available 2021 08:58:31 Brother Family history of diabetes mellitus x2 [email or web address] Not available 2021 08:59:08 Medical History Condition Response High Blood Pressure Y Kidney Stones N Depression N Lung Disease N GERD/Acid Reflux N Sexually Transmitted Infection N Cancer N High Cholesterol Y Diabetes N Bleeding Disorder N Heart Disease N Gynecological History Statement/Question Response If Post Menopausal, Age at Menopause 46 Hormone Therapy N Sexually Active? N Obstetrics History GPAL:G 0 P 0 0 0 0 Immunizations Vaccine Type Date Status Note Provider Nam e and Address Organization Details Recorded Time pneumococcal, unspecified formulation 05/22/2013 completed Eladia Jones null, [facility] 05/25/2023 15:07:19 influenza, unspecified formulation 06/27/2021 completed Eladia Jones null, [facility] 05/25/2023 15:07:19 SARS-COV-2 (COVID-19) vaccine, UNSPECIFIED 01/26/2022 completed Eladia Jones null, [facility] 05/25/2023 15:07:19 Influenza, adjuvanted, trivalent, PF 06/04/2019 completed Eladia Jones null, [facility] 05/25/2023 15:07:02 zoster recombinant 04/22/2019 completed Eladia Jones null, [facility] 05/25/2023 15:07:02 zoster recombinant 07/17/2019 completed Eladia Jones null, [facility] 05/25/2023 15:07:02 Influenza, adjuvanted, quadrivalent, PF 06/12/2020 completed Eladia Jones null, [facility] 05/25/2023 15:07:02 Influenza, adjuvanted, quadrivalent, PF 06/27/2021 completed Eladia Jones null, [facility] 05/25/2023 15:07:02 COVID-19, mRNA, LNP-S, PF, 100 mcg/0.5mL dose or 50 mcg/0.25mL dose 11/13/2020 completed Eladia Jones null, [facility] 05/25/2023 15:07:02 COVID-19, mRNA, LNP-S, PF, 100 mcg/0.5mL dose or 50 mcg/0.25mL dose 12/11/2020 completed Eladia Jones null, [facility] 05/25/2023 15:07:02 COVID-19, mRNA, LNP-S, PF, 100 mcg/0.5mL dose or 50 mcg/0.25mL dose 01/26/2022 completed Eladia Jones null, [facility] 05/25/2023 15:07:02 COVID-19, mRNA, LNP-S, PF, 100 mcg/0.5mL dose or 50 mcg/0.25mL dose 08/03/2021 completed Eladia Jones null, [facility] 05/25/2023 15:07:02 Influenza, high-dose, trivalent, PF 06/12/2018 completed Eladia Jones null, [facility] 05/25/2023 15:07:03 Influenza, high-dose, trivalent, PF 06/20/2017 completed Eladia Jones null, [facility] 05/25/2023 15:07:03 Influenza, high-dose, trivalent, PF 07/07/2016 completed Eladia Jones null, [facility] 05/25/2023 15:07:03 Influenza, adjuvanted, quadrivalent, PF 06/10/2022 completed Eladia Jones null, [facility] 05/25/2023 15:07:19 COVID-19, mRNA, LNP-S, bivalent, PF, 50 mcg/0.5 mL or 25mcg/0.25 mL dose 06/09/2022 completed Eladia Jones null, [facility] 05/25/2023 15:07:19 Past Encounters Encounter ID Performer Location Encounter Start Date Encounter Closed Date Diagnosis/Indication Diagnosis SNOMED-CT Code Diagnosis ICD10 Code Diagnosis Note [id number] ASHLEY GIRALDO MD [facility] [address] [address] 03/14/2022 09:23:54 03/14/2022 13:00:13 Blood in urine 25195993 R31.9 gross hematuria with clots at least once Right side pain, blood clots in urineUA 3+ blood, neg nit, neg le25-50 RBC no prior kidney stones fam history of bladder cancer- sister prior smoker cystoscopy 03/14/22- shows area of suspicious erythema and possible small tumor Plan:CT urogram (high risk gross hematuria, requires IV contrast)c ytology todayOR for bladder biopsy (okay for ASC) Family his tory of malignant neoplasm of urinary bladder 078992670 Z80.52 Ex-smoker [id number] Z87.89 1 [id number] Margret Blackmon [facility] [employer],[address] [address] 04/08/2022 10:44:13 04/11/2022 14:40:14 Blood in urine 33531499 R31.9 [id number] ASHLEY GIRALDO MD [facility] [employer],[address] [address] 04/11/2022 16:16:04 04/11/2022 17:20:38 Blood in urine 54764309 R31.9 gross hematuria with clots at least once Right side pain, blood clots in urineUA 3+ blood, neg nit, neg le25-50 RBC no prior kidney stones fam history of bladder cancer- sister prior smoker cystoscopy 03/14/22- shows area of suspicious erythema and possible small tumor BBx - follicular cystitis CTU reviewed and normal Plan:-foll ow up 1 year with UA Family his tory of malignant neoplasm of urinary bladder [id number] Z80.52 Ex-smoker [id number] Z87.89 1 [id number] ASHLEY GIRALDO MD [facility] [employer],[address] [address] 04/18/2023 14:08:02 04/18/2023 17:12:12 Blood in urine 29644490 R31.9 gross hematuria with clots at least once Right side pain, blood clots in urineUA 3+ blood, neg nit, neg le25-50 RBC no prior kidney stones fam history of bladder cancer- sister prior smoker cystoscopy 03/14/22- shows area of suspicious erythema and possible small tumor BBx - follicular cystitis CTU reviewed and normal Plan:-maurizio tor for recurrent hematuiraf ollwo up as neededmicr o today Health Concerns Section Related Observation LastModified by Organization Detai ls LastModified Time None Recorded Concern Status LastModified by Organization Details LastModified Time None Recorded Advance Directives Directive None Recorded Payers Encounter Date Sequence Insurance Name Policy Number Policy Sharp Covered Member ID Sharp Member ID Guarantor Name 03/14/2022 1 [place] [employer] Esperanza A Luis Enrique [id number] Esperanza A Luis Enrique 03/14/2022 2 [employer] [place] (MEDICARE SUPPLEMENT) Esperanza A Luis Enrique [id number] Esperanza A Luis Enrique 04/08/2022 1 [place] [facility] [employer] Esperanza A Luis Enrique [id number] Esperanza A Luis Enrique 04/08/2022 2 [employer] [place] [employer] [place] (MEDICARE SUPPLEMENT) Esperanza A Luis Enrique [id number] Esperanza A Luis Enrique 04/11/2022 1 [facility] [employer] Esperanza A Luis Enrique [id number] Esperanza A Luis Enrique 04/11/2022 2 [employer] [place] [employer] [place] (MEDICARE SUPPLEMENT) Esperanza A Luis Enrique [id number] Esperanza A Luis Enrique 04/18/2023 1 [facility] [employer] Esperanza A Luis Enrique [id number] Esperanza A Luis Enrique 04/18/2023 2 [employer] [place] (MEDICARE SUPPLEMENT) Esperanza A Luis Enrique [id number] Esperanza A Luis Enrique Notes Date Note Type Note Provider Name and Address Organization Details Recorded Time 03/14/2022 text/html gross hematuria with clots at least once Right side pain, blood clots in urineUA 3+ blood, neg nit, neg le25-50 RBC no prior kidney stones fam history of bladder cancer- sister prior smoker Chief complaint:Blood in urine Hematuria:Began:4 Weeks agoAssociated symptoms:Back pain Overactive Bladder Pathway Questionnaire:Uses the restroom:8times per day Uses the restroom (nighttime): [id number] Accidents:0per day Pads: [id number] day Urogenital Distress Inventory (HELGA-6):[1]Frequent urination:Slightly[ 0] Urine leakage related to the feeling of urgency:Not at All[0] Urine leakage related to physical activity, coughing or sneezing:Not at All[0] Small amounts of urine leakage (drops):Not at All[0] Difficulty emptying your bladder:Not at All[0] Pain or discomfort in the lower abdominal or genital area:Not at All Incontinence Impact Questionnaire (IIQ-7):[0] Ability to do tinsel machine 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 (cooking, housecleaning):Not at All[0] Physical recreation such as walking, or other exercise:Not at All[0] Ability to attend entertainment activities (movie, concerts):Not at All[0] Ability to travel by car more than 30 minutes from home:Not at All[0] Participation in social activities outside your home:Not at All[0] Emotional health (nervousness, depression, etc):Not at All[0] Media frustrated:Not at All ASHLEY GIRALDO MD [address] [facility],[address], [place], [address], [facility] 03/14/2022 12:36:43 04/11/2022 text/html s/p bladder biopsy-follicular cystitis- no cancer gross hematuria with clots at least once Right side pain, blood clots in urineUA 3+ blood, neg nit, neg le25-50 RBC no prior kidney stones fam history of bladder cancer- sister prior smoker Chief complaint:Blood in urine Hematuria:Began:4 Weeks agoAssociated symptoms:Back pain Overactive Bladder Pathway Questionnaire:Uses the restroom:8times per day Uses the restroom (nighttime): [id number] Accidents:0per day Pads: [id number] day Urogenital Distress Inventory (HELGA-6):[1]Frequent urination:Slightly[ 0] Urine leakage related to the feeling of urgency:Not at All[0] Urine leakage related to physical activity, coughing or sneezing:Not at All[0] Small amounts of urine leakage (drops):Not at All[0] Difficulty emptying your bladder:Not at All[0] Pain or discomfort in the lower abdominal or genital area:Not at All Incontinence Impact Questionnaire (IIQ-7):[0] Ability to do tinsel machine operator (cooking, housecleaning):Not at All[0] Physical recreation such as walking, or other exercise:Not at All[0] Ability to attend entertainment activities (movie, concerts):Not at All[0] Ability to travel by car more than 30 minutes from home:Not at All[0] Participation in social activities outside your home:Not at All[0] Emotional health (nervousness, depression, etc):Not at All[0] Media frustrated:Not at All ASHLEY GIRALDO MD [address] [place] [address],[address] [facility], [place], [address], [facility] 04/11/2022 16:56:27 OBGyn Episode No OBEpisode recorded.
[2024-12-13 15:34] VITALS: BP 119/75; PULSE 67; RESP 16; TEMP 37.1; O2SAT 97; BMI 28.3
--- NOTE | 2024-12-13 16:41 | ED.EYEPROB ---
HPI - Eye Problem General Time Seen by Provider: 16:41 Date Seen: 12/13/24 Chief complaint: Eye Problems Stated complaint: Object in Rt eye Time Seen by Provider: 12/13/24 16:39 Source: patient and RN notes reviewed Mode of arrival: ambulatory Limitations: no limitations History of Present Illness HPI Narrative: This 74-year-old female is ambulatory into the ED of her own accord with concern of a foreign body entering her right inner eye when lead with being just prior to arrival. Flu into the corner of her right eye, she was able to get the debris out. She has just a little residual irritation, no visual changes. Feels sore in the corner of her eye. She has had no tearing. She states there really is minimal discomfort. She was just in for physical, went to Pharmacy and believes she had a pneumonia shot, believes her tetanus is up-to-date. She has not taken anything, does not feel she needs anything. She was just worried that if she cause some type of injury or issue that she would be in trouble with her family if she had not gotten it checked out. Related Data Home Medications ?Medication ?Instructions ?Recorded ?Confirmed ncuvuroy-bbl-lwgvz ac 400 1 tab PO DAILY 04/01/22 12/13/24 mcg-calcium carb 500 mg-vit K1 20 mcg tablet (Women's 50 Plus Multivitamin) Previous Rx's ?Medication ?Instructions ?Recorded metronidazole 0.75 % topical cream 1 applic topical BID #45 grams 08/03/22 amlodipine 10 mg tablet 10 mg PO QDAY #90 tabs 11/29/23 amlodipine 5 mg tablet 5 mg PO DAILY #30 tabs 08/16/24 atorvastatin 10 mg tablet 10 mg PO .Bedtime #30 tabs 08/16/24 lisinopril 40 mg tablet 40 mg PO DAILY #30 tabs 08/16/24 Allergies Allergy/AdvReac Type Severity Reaction Status Date / Time codeine Allergy Mild Heart Verified 12/13/24 15:40 palpitations latex Allergy Mild Sensitive Verified 12/13/24 15:40 steroid responder Allergy Mild pt stated Uncoded 11/29/23 10:23 she sees [facility]'s Review of Systems Narrative: As per HPI. [facility] Medical History Pain of left scapula ?M89.8X1 - Other specified disorders of bone, shoulder (ICD-10) History of rheumatic fever ?Z86.79 - Personal history of other diseases of the circulatory system (ICD-10) Surgical History S/P cataract extraction ?Z98.49 - Cataract extraction status, unspecified eye (ICD-10) S/P laser iridotomy ?Z98.890 - Other specified postprocedural states (ICD-10) History of hysterectomy for benign disease (1995) ?Z90.710 - Acquired absence of both cervix and uterus (ICD-10) History of colonoscopy (2005) ?Z98.890 - Other specified postprocedural states (ICD-10) Family History Father Coronary artery disease Sister Kidney disease Ovarian cancer Type 2 diabetes mellitus Mother Type 2 diabetes mellitus Brother Type 2 diabetes mellitus Social History Narrative: Exercises regularly. 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 Ambulatory into the ED of her own accord. Face atraumatic, speaking complete sentences. In her right inner conjunctiva of the eye, minimal erythema. There is no periorbital swelling or erythema of either eye, no tearing. Pupils equal round reactive, extraocular muscles intact. Tetracaine drops and fluorescein were applied to the right eye, she has a little conjunctival uptake along the medial area of the inner conjunctiva. It does not extend over to the cornea. Documenting provider has reviewed patient's vital signs: yes Course Vital Signs Vital signs: Initial Vital Signs Temperature 98.8 F 12/13/24 15:34 Temperature Source Temporal Artery Scan 12/13/24 15:34 Pulse Rate 67 12/13/24 15:34 Respiratory Rate 16 12/13/24 15:34 Blood Pressure 119/75 12/13/24 15:34 Blood Pressure Mean 89 12/13/24 15:34 Blood Pressure Position Sitting 12/13/24 15:34 Pulse Oximetry 97 12/13/24 15:34 Oxygen Delivery Method Room Air 12/13/24 15:34 Vital Signs Temperature 98.8 F 12/13/24 15:34 Pulse Rate 67 12/13/24 15:34 Respiratory Rate 16 12/13/24 15:34 Blood Pressure 119/75 12/13/24 15:34 Pulse Oximetry 97 12/13/24 15:34 Oxygen Delivery Method Room Air 12/13/24 15:34 Temperature 98.8 F 12/13/24 15:34 Pulse Rate 67 12/13/24 15:34 Respiratory Rate 16 12/13/24 15:34 Blood Pressure 119/75 12/13/24 15:34 Pulse Oximetry 97 12/13/24 15:34 Oxygen Delivery Method Room Air 12/13/24 15:34 Discharge Plan Discharge Clinical Impression: Conjunctival abrasion Qualifiers: Encounter type: initial encounter Laterality: right Qualified Code(s): S05.01XA - Injury of conjunctiva and corneal abrasion without foreign body, right eye, initial encounter Patient Disposition: Home, Self-Care Condition: Stable Instructions: Corneal Abrasion (ED) Additional Instructions: Can follow the handout for corneal abrasion, technically your cornea is not abraded but would recommend same treatment. Given you have really minimal symptoms, can use Tylenol for discomfort if needed. You can use some lubricating eyedrops. If your eye is not continuing to feel better, if it starts to have increasing pain, increasing redness, any discharge, would recommend re-evaluation and do recommend seeing an eye doctor if possible. Hopefully you will have no complications as these usually heal quickly and without problem for vast majority of patients. Do recommend wearing eye protection with weed whipping. Activity Level: Activity as Tolerated Prescriptions: No Action amlodipine 10 mg tablet 10 mg PO QDAY Qty: 90 3RF Women's 50 Plus Multivitamin 400 mcg-500 mg calcium-20 mcg tablet 1 tab PO DAILY metronidazole 0.75 % cream 1 applic topical BID Qty: 45 5RF lisinopril 40 mg tablet 40 mg PO DAILY Qty: 30 0RF amlodipine 5 mg tablet 5 mg PO DAILY Qty: 30 0RF atorvastatin 10 mg tablet 10 mg PO .Bedtime Qty: 30 0RF Follow Up/Referrals: Derek Christian MD [Primary Care Provider] - Stand Alone Forms: [employer] Info Instructions
[2024-12-13] MEDS: FLUORESCEIN SODIUM TOPICAL STRIP 1 STRIP EYE-RIGHT (17:00)
[2024-12-13] MEDS: TETRACAINE 0.5% OPHTH 2 DROP EYE-RIGHT (17:00)
--- OUTSIDE RECORDS SUMMARY | 2024-12-13 17:10 | XMS_ITS ---
Author Name MELVIN MULLIGAN Address Unknown Phone [phone] Organization Unknown Address Unknown Phone [phone] Care Team Providers Care Crystal Gazer Name Role Phone HEMANT MULLIGAN Attending [phone] HEMANT MULLIGAN Ordering [phone] Allergies and Intolerances Substance Reaction Severity Activated [...]
--- OUTSIDE RECORDS SUMMARY | 2024-12-13 17:10 | XMS_ITS ---
Author Name JAY PAUL Address Unknown Phone 1 Organization Unknown Address Unknown Phone 1 Care Team Providers Care Cable Driller Name Role Phone MD JAY PAUL Attending [...]
--- OUTSIDE RECORDS SUMMARY | 2024-12-13 17:11 | XMS_ITS | Clinical Summary ---
Author Organization [employer] [facility] Address [address] [place] [address] Care Team Providers Care Income Tax Return Preparer Name Role Phone Lorraine Zambrano MD Primary [...] Department Care Team Description 10/15/2024 8:25 AM RESIDENCE MANAGER Office Visit [facility] [address] [place] [address] Lorraine Zambrano MD Derm Problem (Red patch on nose. Was seen at [facility] in [place]. Would like to verify how to use prescribed medication. Fluorouracil (5-FU) 5%); Blood Pressure (Home - BP 08/2024 - 09/2024. 126/68 135/70 138/76 139/68 132/72) 10/15/2024 Travel 09/30/2024 Telephone [facility] [address] [place] [address] Lorraine Zambrano MD blood pressure reading 09/29/2024 Refill [facility] [address] [place] [address] Lorraine Zambrano MD Refill Request (Lisinopril, Amlodipine, [...] Comments Blood Pressure 161/73 10/15/2024 8:47 AM RESIDENCE MANAGER Pulse 64 10/15/2024 8:47 AM RESIDENCE MANAGER Temperature 36.6 C (97.8 F) 04/04/2022 9:29 AM CDT Respiratory Rate 16 04/04/2022 10:15 AM CDT Oxygen Saturation 98% 10/15/2024 8:44 AM RESIDENCE MANAGER Inhaled Oxygen Concentration - - Weight 74.4 kg (164 lb) 10/15/2024 8:44 AM RESIDENCE MANAGER Height 167 cm (5' 5.75) 10/15/2024 8:44 AM RESIDENCE MANAGER Body Mass Index 26.67 10/15/2024 8:44 AM RESIDENCE MANAGER Plan of Treatment Upcoming Encounters Date Type Department Care Team (Late st Contact Info) Description 05/08/2025 7:00 AM CDT Office Visit [facility] [address] [facility] [address] Lorraine Zambrano MD [address] [place] [address] Health Maintenance Due Date Last Done Comments [...] BASIC METABOLIC PANEL Routine 10/15/2024 9:50 AM RESIDENCE MANAGER HTN (hypertension) LIPID PANEL W REFLEX MEASURED LDL Routine 10/15/2024 9:50 AM RESIDENCE MANAGER Mixed hyperlipidemia from Last 3 Months Results * (ABNORMAL) LIPID PANEL W REFLEX MEASURED LDL (10/15/2024 9:50 AM RESIDENCE MANAGER) CHOLESTEROL, TOTAL 194 <200 mg/dL [facility] HDL CHOLESTEROL 71 > OR = 50 mg/dL [facility] TRIGLYCERIDES 76 <150 mg/dL [facility] LDL-CHOLESTEROL 106(H) mg/dL (calc) [facility] ileana Leong Comment: Reference range: <100 Desirable range <100 mg/dL for primary prevention; <70 mg/dL for patients with CHD or diabetic patients with > or = 2 CHD risk factors. LDL-C is now calculated using the Brian calculation, which is a validated novel method providing better accuracy than the Friedewald equation in the estimation of LDL-C. Casimiro SEN et al. KELLY. 2013;310(19): 9903-2053 (http://education.Bellmetric/faq/HVY336) CHOL/HDLC RATIO 2.7 <5.0 (calc) [facility] NON HDL CHOLESTEROL 123 <130 mg/dL (calc) [facility] Leong Comment: For patients with diabetes plus 1 major ASCVD risk factor, treating to a non-HDL-C goal of <100 mg/dL (LDL-C of <70 mg/dL) is considered a therapeutic option. Blood BLOOD SPECIMEN / Unknown 10/15/2024 9:50 AM RESIDENCE MANAGER 10/15/2024 9:50 AM RESIDENCE MANAGER Lorraine Zambrano MD CHEMISTRY Final Result [facility] [address] [place] [address], [facility] [address] [place] [address] * BASIC METABOLIC PANEL (10/15/2024 9:50 AM RESIDENCE MANAGER) Pathologist [facility] GLUCOSE 97 65 - 99 mg/dL [facility] ileana Leong Comment: Fasting reference interval UREA NITROGEN (BUN) 17 7 - 25 mg/dL [facility] CREATININE 0.82 0.60 - 1.00 mg/dL [facility] EGFR 74 > OR = 60 mL/min/1. 73m2 [facility] Leong BUN/CREATININE RATIO SEE NOTE: 6 [...] BLOOD SPECIMEN / Unknown 10/15/2024 9:50 AM RESIDENCE MANAGER 10/15/2024 9:50 AM RESIDENCE MANAGER Lorraine Zambrano MD CHEMISTRY Final Result [facility] [address] [place] [address], [facility] [address] [place] [address] from Last 3 Months Insurance MEDICARE PB ONLY MEDICARE PART B HB ONLY MEDICARE PART A HB ONLY [facility] Advance Directives * Full Code (Latest Code Status on File) Date Activated Date Inactivated Comments 04/04/2022 7:26 AM 04/04/2022 7:31 AM Question Answer Comments Code Status Discussion: Reviewed Preferences * Full Code Date Activated Date Inactivated Comments 04/04/2022 7:26 AM 04/04/2022 7:26 AM Question Answer Comments Code Status Discussion: Reviewed Preferences Care Teams Income Tax Return Preparer Relationship Specialty Start Date End Date Lorraine Zambrano MD [address] [place] [address] PCP - General Family Practice 09/13/24
[2024-12-13 17:33] VITALS: BP 140/83; PULSE 60; RESP 16; O2SAT 98
== END 2024-12-13 17:37 | disposition home or self-care (01) ==
LOC: ED 17:09
PROVIDERS: Emergency Provider Family Medicine; PCP Family Medicine
DX: S05.01XA Injury of conjunctiva and corneal abrasion without foreign body, right eye, initial encounter (principal)
CPT/HCPCS: 99282; 99283; A9270